=== PATIENT | female | born 1965 | race Caucasian/White ===

== ENCOUNTER 2024-06-05 07:13 | Emergency (ER) | payer BC, MEDICARE, SELFPAY ==
[2024-06-05 07:15] VITALS: BP 103/73
--- NOTE | 2024-06-05 07:46 | ED.GENMED ---
History of Present Illness
General
Chief Complaint: Abdominal Symptoms
Source: patient
Time Seen by Provider: 06/05/24 07:26
History of Present Illness
History of Present Illness:
This patient is a 59-year-old female with an extensive prior medical history presents emergency department with complaints of right lower back pain that she has had for the last few days associated with nausea and 'dark' urine. The pain initially
was intermittent but now is constant. It is not related to certain positions, and there are no exacerbating relieving factors. She thought at first that it might be related to a back drain as patient works in the [employer] and
does a lot of lifting. Patient notes that she does get periodic iron infusions and that she has been recently feeling tired but having difficulty sleeping. She denies dysuria, urgency, frequency, hematuria. She has her typical loose stools which
appear yellowish in color without blood. She denies fever, chest pain, shortness of breath, vomiting, abdominal pain. The symptoms are inconsistent with prior episodes of bowel obstruction. Patient saw her primary care doctor and was told that
her urine looked dark but otherwise inconclusive.
Past History
Past History
ED Past Medical History: CVA (stroke 2003 presumed to be due to patent foramen ovale), Fibromyalgia (systemic scleroderma, Raynaud's, Sjogren's disease), GERD, Psychiatric (Anxiety, depression) and Other (Irritable bowel syndrome, scleroderma,
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
ED Past Surgical History: Appendectomy, Bowel resection (Ileostomy), Cardiac (foramen ovale closure 2004), Cholecystectomy, Orthopedic (bilateral carpal tunnel releases), Tonsilectomy, Urological (Bladder sent) and Other (Gastric bypass, bowel
resection, SBOs, Hernia, Eye surgery, )
Social History
Tobacco: Non-smoker
Alcohol: None
Drug: None
Personal:
Living: with family
Employment: Employed
Family History
Family History: Other (reviewed and noncontributory)
Phy Exam
Physical Exam
Physical Exam:
GENERAL: Alert , in no apparent distress
EYE: pupils equal and reactive
NECK: Supple, no significant adenopathy.
ENT: o/p clr, mmm.
CARDIAC: Regular rate and rhythm .
LUNGS: Clear breath sounds bilaterally, no acute respiratory distress, no wheezes/rales/rhonchi
ABDOMEN: Soft, without focal tenderness, no r/g, no cvat
NEUROLOGICAL: Alert and oriented, no focal neuro deficits
SKIN: Warm and dry, skin intact.
MUSCULOSKELETAL: No edema, well perfused.
PSYCH: Normal and appropriate interaction.
back: no skin changes noted at area of pain (R lower flank), moves about bed easily, no ttp
Course
Orders/Labs/Results
Orders:
Orders
06/05/24 07:49
HYDROmorphone [Dilaudid] 0.5 mg IV NOW STA
Ondansetron Injectable [Zofran] 4 mg IV NOW STA
06/05/24 07:50
CT Abd/pel Without Iv Or Oral Urgent
Comment:
Reason For Exam: R flank pain
06/05/24 08:11
Complete Blood Count/No Diff Urgent
Comprehensive Metabolic Panel Urgent
Lipase Urgent
Urinalysis Reflex To Culture Urgent
Date Specimen was Collected: 06/05/24
Time Specimen was Collected: 07:55
Urine Microscopic Reflex Cult Urgent
Urine Culture Urgent
RASHID Source: U
Specimen Description:
Date Specimen was Collected: 06/05/24
Time Specimen was Collected: 07:55
Abnormal Lab Results
06/05/24
08:11
MCHC 32.7 L g/dL
(33.0-37.0)
Sodium 134 L mmol/L
(135-145)
Total Protein 6.2 L g/dl
(6.3-8.2)
Urine Bilirubin 1+ A
(Negative)
Leukocyte Esterase Rfl 1+ A
(Negative)
Urine Bacteria (Reflex) Few A
(Negative)
Urine Albumin (Reflex) 2+ A
(Neg - Trace)
06/05/24 08:11
06/05/24 08:11
Vital Signs
Initial and Last Documented VS:
Initial Vital Signs
Temp Pulse Resp BP Pulse Ox
98.8 F 66 18 103/73 97
06/05/24 07:15 06/05/24 07:15 06/05/24 07:15 06/05/24 07:15 06/05/24 07:15
Last Documented Vital Signs
Temp Pulse Resp BP Pulse Ox
98.8 F 66 18 103/73 97
06/05/24 07:15 06/05/24 07:15 06/05/24 07:15 06/05/24 07:15 06/05/24 07:15
*Critical Care Note
Total Time (30-74mins, 75-104mins- exclusive of procedures): Not Applicable
Update Note
Update Note:
Patient presents to the Emergency Department with back pain and nausea___
Number and Complexity of Problems Addressed at the Encounter
� Chronic conditions affecting care:
� Acute Exacerbation and/or Progression of Chronic Illness:
� Differential Diagnosis includes: But not limited to kidney stone, pyelonephritis, musculoskeletal strain, etc. etc.
Amount and/or Complexity of Data to be Reviewed and Analyzed
� I performed an independent evaluation of and my interpretation is:
EKG:
CT:read by rads There is no hydronephrosis or evidence of renal calculus.
Postoperative changes of subtotal colectomy with mild/moderate rectal stool burden.
Prior cholecystectomy.
Xrays:
Laboratory Studies: Generally unremarkable
Other:
� Review of other/old records reveals: Prior hospitalization reviewed including discharge from September 2022 and ER visit January 2023.
� Clinical information was obtained by an independent historian:
� Prescriptions/Medications Considered but not given:
� Further testing considered but not performed:
Risk of Complications and/or Morbidity or Mortality of Patient Management
� Social determinants of health affecting care:
� Discussion with other providers (PCP, Hospitalists, Consultants, etc):
� Escalation of care including admission/observation vs risk of discharge considered: Workup generally unremarkable here, no emergent etiology noted for her symptoms. I have very low clinical suspicion for a vascular origin of
her pain such as dissection, occlusion. UA unremarkable and not suggestive of infection. Will recommend patient follow-up closely with her primary care doctor, discussed with her reasons to return the emergency department. pt GIVEN COPY OF CT.
ED Attending Note
-
Portions of this chart may have been created with voice recognition software.� Occasional wrong word or��sound alike� substitutions may have occurred due to the inherent limitations of voice recognition software.
Discharge Plan
Departure
Patient Disposition: Home (Routine Discharge)
Date of Disposition: 06/05/24
Time of Disposition: 09:32
Patient with high blood pressure during this ER visit?: No
Condition: Good
Discharge Problem:
Back pain
Instructions: Back Pain
Prescriptions:
No Action
hydroxychloroquine [Plaquenil] 200 MG tablet
200 mg PO BID
trazodone 100 MG tablet
200 mg PO HS
gabapentin 300 MG capsule
300 mg PO BID
zonisamide 50 MG capsule
100 mg PO BID@0800,1700
levothyroxine [Synthroid] 50 MCG tablet
50 mcg PO DAILY AT 0700
duloxetine [Cymbalta] 60 mg Capsule,Delayed Release(Dr/Ec)
90 mg PO DAILY
cyanocobalamin (vitamin B-12) 1,000 MCG tablet
5,000 mcg PO DAILY
cholecalciferol (vitamin D3) 1,000 UNITS tablet
3,000 units PO DAILY
olanzapine 2.5 mg Tablet
5 mg PO HS
zonisamide 50 mg Capsule
50 mg PO HS
omeprazole 40 mg Capsule,Delayed Release(Dr/Ec)
40 mg PO BID
multivitamin Tablet
1 tab PO DAILY
lorazepam [Ativan] 1 mg Tablet
1 mg PO QID
oxycodone 5 mg Tablet
20 mg PO Q6H PRN (Reason: Pain)
buprenorphine [Butrans] 20 mcg/hour Patch Weekly
1 patch TRANSDERMAL QWEEK
loperamide [Imodium] 2 mg Capsule
2 mg PO Q6H
diphenoxylate-atropine [Lomotil] 2.5-0.025 mg Tablet
1 tab PO Q6H
psyllium husk [Metamucil] 0.52 gram Capsule
0.52 g PO QID
Referrals:
Venkat Valdez MD [Family Provider] - Follow up in 2-3 days
Activity Restrictions/Additional Instructions:
IF YOU DEVELOP INCREASING/NEW PAIN, FEVER, VOMITING, ABDOMINAL PAIN, NUMBNESS, WEAKNESS, INCONTINENCE, GET WORSE, OR OTHER WORRISOME SIGNS, GO TO THE ER IMMEDIATELY!
Interventions
Interventions:
*Risk Screen - Suicide Last Done: 06/05/24 07:15
*General Assessment Last Done: 06/05/24 07:15
*Neglect/Abuse Screening Last Done: 06/05/24 07:15
*ED COVID-19 Vaccine History Last Done: 06/05/24 08:32
KN-Qvzdnu-Rwgjsuhycv Assessment Last Done: 06/05/24 08:32
Discharge Date and Time
Print Language: PASHTO
[2024-06-05] MEDS: ZOFRAN 4 MG IV (08:21)
[2024-06-05] MEDS: DILAUDID 0.5 MG IV (08:22)
[2024-06-05 08:23] LABS: Hematocrit 41.9 % (37.0-47.0); Hemoglobin 13.7 g/dL (12.0-16.0); Mean Corp Hgb Conc. 32.7 g/dL (33.0-37.0); Mean Corpuscular Volume 91.9 fL (81.0-99.0); Mean Platelet Volume 10.1 fL (7.4-10.4); Platelet Count 250 10^3/uL (130-400); Red Blood Cell Count 4.56 10^6/uL (4.20-5.40); Red Cell Dist. Width 13.8 % (11.5-14.5); White Blood Cell Count 6.2 10^3/uL (4.8-10.8)
[2024-06-05 08:28] LABS: Urine Albumin 2+ (Neg - Trace); Urine Bilirubin 1+ (Negative); Urine Character Clear (Clear); Urine Color Yellow; Urine Glucose Negative (Negative); Urine Ketone Negative (Negative); Urine Leukocyte 1+ (Negative); Urine Nitrite Negative (Negative); Urine Occult Blood Negative (Negative); Urine Specific Gravity 1.015 (<1.030); Urine Urobilinogen 1+ (Neg - 1+)
[2024-06-05 08:35] LABS: ALT (SGPT) 13 U/L (0-35); AST (SGOT) 21 U/L (14-36); Albumin 3.7 g/dl (3.5-5.0); Alkaline Phosphatase 63 U/L (38-126); Blood Urea Nitrogen 10 mg/dl (7-17); Calcium 9.2 mg/dl (8.4-10.2); Carbon Dioxide 25 mmol/L (22-30); Chloride 105 mmol/L (98-107); Glucose 76 mg/dl (70-99); Lipase 170 U/L (23-300); Potassium 4.8 mmol/L (3.5-5.1); Sodium 134 mmol/L (135-145); Total Bilirubin 0.8 mg/dl (0.2-1.3); Total Protein 6.2 g/dl (6.3-8.2); eGFR > 60.00
[2024-06-05 09:21] LABS: Urine Bacteria Few (Negative); Urine Red Blood Cell 0-2 /HPF (0-2); Urine Squamous Cell 16-20 /LPF (Few)
[2024-06-05 10:25] VITALS: BP 136/78
--- NOTE | 2024-06-06 10:22 | ED.ADDNOTE ---
ED Addendum
ED Addendum
ED Addendum Note:
LATE ENTRY FOR 01/31/[address] scan results and my note are entered erroneously. The correct results are as follows:
Order #:[id number]
Exams: CT Abd/pel W Iv And Oral Contr
PROCEDURES: CT Abd/pel W Iv And Oral Contr
CLINICAL INDICATION: abd pain
TECHNIQUE: Axial images were obtained through the abdomen and pelvis following oral contrast and intravenous nonionic contrast with coronal and sagittal reformations. Automated dose reduction technique was utilized for this exam.
COMPARISON: October 27, 2022; September 30, 2022
FINDINGS:
Lower Chest: Lung bases predominantly clear. Small hiatal hernia. No pleural effusion.
Abdomen:
Liver: No focal intrinsic abnormality.
Bile Ducts: Within normal limits.
Gallbladder: Prior cholecystectomy.
Pancreas: Within normal limits.
Spleen: Within normal limits.
Adrenals: Within normal limits.
Kidneys/Ureters: No focal intrinsic abnormality.
Bowel: Prior subtotal colectomy with distal sigmoid/rectal anastomosis and apparent reversal of colostomy in the interval since prior study. Mild nonspecific small bowel dilatation. Right sided spiculation in hernia containing nondilated loop of
small bowel without accompanying inflammatory changes. Some mild rectal wall thickening is suspected.
Peritoneum: No ascites or free air.
Bladder: Unopacified without gross focal intrinsic abnormality.
Vessels: Abdominal aorta within the limits of normal in caliber.
Retroperitoneum: No retroperitoneal lymphadenopathy.
Bones: No suspicious lesions. Apparent neurostimulator generator are again seen overlying the right gluteal region.
IMPRESSION:
Apparent prior subtotal colectomy with distal sigmoid/rectal anastomosis, nonspecific mild small bowel dilatation.
Right-sided spiculated hernia containing nondilated bowel without accompanying inflammatory changes.
Mild rectal wall thickening which could represent mild proctitis.
Findings again seen: Small hiatal hernia and prior cholecystectomy.
Study preliminarily interpreted by Dr. Gilmore from [facility], report faxed to the emergency department at [id number] hours on January 31, 2023.
Electronically signed by Sanchez Lantigua MD 01/31/2023 7:07 AM
[facility] Dose Report: Up-to-date CT equipment and radiation dose reduction techniques were employed. CTDIvol: 6.8 mGy. DLP: 361 mGy-cm.
Dictated By: Sanchez Lantigua MD
Dictated Date & Time: 01/31/23 0700
Signed/Co-Signer By: Sanchez Lantigua MD /
Signed/Co-Signer Date & Time: 01/31/23 0707 /
Transcribed by: Sanchez Lantigua
All references to a renal mass are erroneous
== END 2024-06-05 10:00 | disposition home or self-care (01) ==
LOC: EMR 07:13
PROVIDERS: EMERGENCY PHYSICIAN Emergency Medicine; FAMILY PHYSICIAN Internal Medicine
DX: M54.50 Low back pain, unspecified (principal); M79.7 Fibromyalgia; M34.9 Systemic sclerosis, unspecified; I73.00 Raynaud's syndrome without gangrene; M35.00 Sjogren syndrome, unspecified; K21.9 Gastro-esophageal reflux disease without esophagitis; K58.0 Irritable bowel syndrome with diarrhea; Z86.73 Personal history of transient ischemic attack (TIA), and cerebral infarction without residual deficits; Z90.49 Acquired absence of other specified parts of digestive tract; Z98.84 Bariatric surgery status
CPT/HCPCS: 99284; 96374; 96375; 74176; 80053; 81003; 81015; 83690; 85027; 87077; 87086; 87186

== ENCOUNTER 2024-06-22 20:13 | Inpatient (IN) | payer MEDICARE, BC, SELFPAY ==
[2024-06-22 13:47] VITALS: BP 110/75
[2024-06-22] MEDS: ZOFRAN ODT (ORALLY DISINTEGRATING) 4 MG PO (13:56)
--- NOTE | 2024-06-22 14:08 | ED TECH ---
pt typically an ultrasound stick
--- NOTE | 2024-06-22 16:16 | ED.GENMED ---
History of Present Illness
General
Chief Complaint: Abdominal Pain
Source: patient
Exam Limitations: none
Time Seen by Provider: 06/22/24 16:02
Nursing documentation reviewed up to this point in time: agreed with
History of Present Illness
History of Present Illness:
Patient to ED with complaint of diffuse abdominal pain, n/v. Symptoms started this AM. Denies fever/chills, diarrhea. Took zofran at home without relief. States she vomited blood. Brought self to ED for eval.
Past History
Past History
ED Past Medical History: CVA (stroke 2003 presumed to be due to patent foramen ovale), Fibromyalgia (systemic scleroderma, Raynaud's, Sjogren's disease), GERD, Psychiatric (Anxiety, depression) and Other (Irritable bowel syndrome, scleroderma,
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
ED Past Surgical History: Appendectomy, Bowel resection (Ileostomy), Cardiac (foramen ovale closure 2004), Cholecystectomy, Orthopedic (bilateral carpal tunnel releases), Tonsilectomy, Urological (Bladder sent) and Other (Gastric bypass, bowel
resection, SBOs, Hernia, Eye surgery, )
Social History
Tobacco: Non-smoker
Alcohol: None
Drug: None
Personal:
Living: with family
Employment: Employed
Family History
Family History: Other (reviewed and noncontributory)
Review of Systems
Review of Systems
Allergies reviewed?: Yes
All Other Systems: ROS reviewed and negative except as documented in HPI and ROS
Constitutional: Reports no symptoms
EENT: Reports no symptoms
Respiratory: Reports no symptoms
Cardiac: Reports no symptoms
ABD/GI: Reports abdominal pain (diffuse), nausea and vomiting (reports episode of vomiting blood at home)
: Reports no symptoms
Musculoskeletal: Reports no symptoms
Skin: Reports no symptoms
Neurological: Reports no symptoms
Psychiatric: Reports no symptoms
Phy Exam
General Physical Exam
General Presentation: mild distress
General age: appears stated age
General Skin: warm and dry
General Habitus: normal
General Mental: alert
Cardiovascular Exam
Cardiovascular Exam: regular rate/rhythm
Pulmonary Exam
Pulmonary Exam: no respiratory distress and chest non tender
Gastrointestinal Exam
Gastrointestinal Exam: normal bowel sounds, soft, no organomegaly, no pulsatile mass, non distended and no cva tenderness
Palpation: generalized: Moderate tenderness
Musculoskeletal Exam
Musculoskeletal Exam: full ROM and neuro vasc intact
Skin Exam
Skin Exam: normal color, warm/dry and no rash
Psychiatric Exam
Psychiatric Exam: normal mood/affect
Course
Orders/Labs/Results
Orders:
Orders
06/22/24 13:55
Ondansetron Orally Disint [Zofran Odt (Orally Disintegrating)] 4 mg .ROUTE .ST-MED ONE
Ondansetron Orally Disint [Zofran Odt (Orally Disintegrating)] 4 mg PO NOW STA
Obstruct Series W/PA Chest [CR Obstruct Series W/pa Chest] Urgent
Comment:
Reason For Exam: pain, vomiting
06/22/24 16:13
0.9% Sodium Chloride 1000 ml [Nss] 1,000 ml IV BOLUS
06/22/24 16:14
HYDROmorphone [Dilaudid] 0.5 mg IV NOW STA
Ondansetron Injectable [Zofran] 4 mg IV NOW STA
06/22/24 16:15
CT Abd/pelvis W Iv Cont Urgent
Comment:
Reason For Exam: diffuse pain, vomiting.
06/22/24 16:16
Urinalysis Reflex To Culture Urgent
Date Specimen was Collected: 06/22/24
Time Specimen was Collected: 16:34
06/22/24 17:41
ABO2 Urgent
K Wristband Number:
Associate notified that ABO2 has been ordered: [id number]
Date: 06/22/24
Time: 18:36
Kiln Charger ID: [id number]
Complete Blood Count/With Diff Urgent
Comprehensive Metabolic Panel Urgent
Lipase Urgent
06/22/24 19:21
HYDROmorphone [Dilaudid] 0.5 mg IV NOW STA
Ondansetron Injectable [Zofran] 4 mg IV NOW STA
Abnormal Lab Results
06/22/24
17:41
MCHC 32.3 L g/dL
(33.0-37.0)
Carbon Dioxide 31 H mmol/L
(22-30)
Total Protein 5.9 L g/dl
(6.3-8.2)
06/22/24 17:41
06/22/24 17:41
Vital Signs
Initial and Last Documented VS:
Initial Vital Signs
Temp Pulse Resp BP Pulse Ox
98.5 F 80 20 110/75 93
06/22/24 13:47 06/22/24 13:47 06/22/24 13:47 06/22/24 13:47 06/22/24 13:47
Last Documented Vital Signs
Temp Pulse Resp BP Pulse Ox
98.5 F 82 14 112/69 98
06/22/24 13:47 06/22/24 19:15 06/22/24 19:15 06/22/24 18:00 06/22/24 19:15
*Radiology
Radiology exam reviewed: radiology read reviewed
*Pulse Oximetry
Patient hypoxic: no
*Critical Care Note
Total Time (30-74mins, 75-104mins- exclusive of procedures): Not Applicable
Update Note
Update Note:
Patient to ED with complaint of diffuse abd. pain. CT result reviewed - suspeceted partial SBO. No further vomiting in ED, COntinues to complain of pain. WIll admit to hospitalist service. Case discussed with Dr. Leonard who agrees with
findings and plan
ED Attending Note
-
Portions of this chart may have been created with voice recognition software.� Occasional wrong word or��sound alike� substitutions may have occurred due to the inherent limitations of voice recognition software.
Discharge Plan
Departure
Patient Disposition: Admit
Date of Disposition: 06/22/24
Time of Disposition: 19:21
Presentation/result/management discussed w/ accepting MD/DO: Hospitalist
Condition: Fair
Covid-19: Not Applicable
Discharge Problem:
Partial small bowel obstruction
Prescriptions:
No Action
hydroxychloroquine [Plaquenil] 200 MG tablet
200 mg PO BID
trazodone 100 MG tablet
200 mg PO HS
gabapentin 300 MG capsule
300 mg PO BID
zonisamide 50 MG capsule
100 mg PO BID@0800,1700
levothyroxine [Synthroid] 50 MCG tablet
50 mcg PO DAILY AT 0700
duloxetine [Cymbalta] 60 mg Capsule,Delayed Release(Dr/Ec)
90 mg PO DAILY
cyanocobalamin (vitamin B-12) 1,000 MCG tablet
5,000 mcg PO DAILY
cholecalciferol (vitamin D3) 1,000 UNITS tablet
3,000 units PO DAILY
olanzapine 2.5 mg Tablet
5 mg PO HS
zonisamide 50 mg Capsule
50 mg PO HS
omeprazole 40 mg Capsule,Delayed Release(Dr/Ec)
40 mg PO BID
multivitamin Tablet
1 tab PO DAILY
lorazepam [Ativan] 1 mg Tablet
1 mg PO QID
oxycodone 5 mg Tablet
20 mg PO Q6H PRN (Reason: Pain)
buprenorphine [Butrans] 20 mcg/hour Patch Weekly
1 patch TRANSDERMAL QWEEK
loperamide [Imodium] 2 mg Capsule
2 mg PO Q6H
diphenoxylate-atropine [Lomotil] 2.5-0.025 mg Tablet
1 tab PO Q6H
psyllium husk [Metamucil] 0.52 gram Capsule
0.52 g PO QID
nitrofurantoin monohyd/m-cryst [Macrobid] 100 mg capsule
100 mg PO BID Qty: 14 0RF
Referrals:
Venkat Valdez MD [Family Provider] -
Interventions
Interventions:
*Risk Screen - Suicide Last Done: 06/22/24 13:47
*General Assessment Last Done: 06/22/24 17:48
*Neglect/Abuse Screening Last Done: 06/22/24 17:48
*ED- Fall Risk Assessment Last Done: 06/22/24 17:48
*ED COVID-19 Vaccine History Last Done: 06/22/24 17:48
YG-Qwtdsp-Cbwgbephcz Assessment Last Done: 06/22/24 17:40
Discharge Date and Time
Print Language: PANAMANIAN
[2024-06-22 17:12] VITALS: BP 109/72
[2024-06-22] MEDS: NSS 1000 IV (17:37)
[2024-06-22] MEDS: DILAUDID 0.5 MG IV ×2 (17:37→20:46)
[2024-06-22] MEDS: ZOFRAN 4 MG IV ×2 (17:38→20:45)
[2024-06-22 17:46] VITALS: BMI 23.9
[2024-06-22 18:00] VITALS: BP 112/69
[2024-06-22 18:06] LABS: % Basophils 0.6 % (0-2); % Eosinophils 1.2 % (0-6); % Immature Granulocytes 0.1 % (0-0.5); % Lymphocytes 22.7 % (20.5-51.1); % Monocytes 7.8 % (1.7-9.3); % Neutrophils 67.6 % (42.2-75.2); Absolute Eosinophils 0.1 10^3/uL (0-0.7); Absolute Lymphocytes 1.5 10^3/uL (1.2-3.4); Absolute Monocytes 0.5 10^3/uL (0.1-0.6); Absolute Neutrophils 4.6 10^3/uL (1.4-6.5); Hematocrit 41.8 % (37.0-47.0); Hemoglobin 13.5 g/dL (12.0-16.0); Mean Corp Hgb Conc. 32.3 g/dL (33.0-37.0); Mean Corpuscular Hgb 29.8 pg (27.0-31.0); Mean Corpuscular Volume 92.3 fL (81.0-99.0); Mean Platelet Volume 9.7 fL (7.4-10.4); Nucleated Red Blood Cells % 0 %; Platelet Count 264 10^3/uL (130-400); Red Blood Cell Count 4.53 10^6/uL (4.20-5.40); Red Cell Dist. Width 14.3 % (11.5-14.5); White Blood Cell Count 6.8 10^3/uL (4.8-10.8)
[2024-06-22 18:20] LABS: ALT (SGPT) 15 U/L (0-35); AST (SGOT) 21 U/L (14-36); Albumin 3.5 g/dl (3.5-5.0); Alkaline Phosphatase 73 U/L (38-126); Blood Urea Nitrogen 13 mg/dl (7-17); Calcium 8.7 mg/dl (8.4-10.2); Carbon Dioxide 31 mmol/L (22-30); Chloride 105 mmol/L (98-107); Estimated Creatinine Clearance 73 ml/min; Glucose 84 mg/dl (70-99); Lipase 102 U/L (23-300); Potassium 4.5 mmol/L (3.5-5.1); Sodium 137 mmol/L (135-145); Total Bilirubin 0.6 mg/dl (0.2-1.3); Total Protein 5.9 g/dl (6.3-8.2); eGFR > 60.00
--- NOTE | 2024-06-22 20:06 | HPS.HSE ---
Family Physician
-
Family Physician: Venkat Valdez
Chief Complaint
-
Abd Pain
History of Present Illness
Patient is a 59y F with PMH significant for scleroderma / Sjogren's and multiple prior bowel surgeries who presents to ED complaining of abdominal pain. Patient states that she woke this AM with pain in the L abdomen and this has persisted
throughout the day. She reports emesis x 3 episodes total - twice with lexx blood in the emesis. She had a BM this AM which she describes as watery diarrhea. Last normal BM was yesterday AM.
Patient states that her pain in the ED is 10.
Patient has had multiple previous episodes of ileus, SBO, etc and multiple prior surgeries, bowel resections, etc.
She has prior history of total colectomy with J-pouch / ileostomy. Ileostomy has been reversed since her last visit here (09/2022).
She has been followed by Dr. Dl Jackman at [place] for previous GI / surgical issues.
Medical History
Past Medical History
Past Medical History: Reports Other
Additional Past Medical History:
Systemic Scleroderma
Sjogren's Syndrome
Raynaud's
Psychogenic Nonepileptic Seizures
Hx Stroke secondary to patent foramen ovale which has been subsequently closed
Hypothyroidism
Anxiety/Depression
GERD/Anastomotic Ulcer
Past Surgical History: Reports Other
Additional Past Surgical History:
Gastric Bypass
Multiple Small Bowel Resections
Subtotal Colectomy / J-Pouch
Ileostomy 2021 right side abdomen, revision with left side abdomen ileostomy February 2022
Cholecystectomy
Appendectomy
PFO Device Closure
Tonsillectomy
Social History
Tobacco: Non-smoker
Alcohol: None
Drug: None
Personal:
Living: With Family (Daughter and )
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
Family History
Family History: Not pertinent
Allergies / Home Medications
Allergies reflects when Allergies were last updated in [employer].
Home Medications with original date entered in [employer]
Allergy/Medication List:
Allergies
Allergy/AdvReac Type Severity Reaction Status Date / Time
Cephalosporins Allergy rash, Verified 06/22/24 13:48
swelling
fentanyl Allergy PATCH-RASH/ Verified 06/22/24 13:48
SWELLING
ketamine Allergy rash,swelli Verified 06/22/24 13:48
ng
ketorolac [From Toradol] Allergy rash,swelli Verified 06/22/24 13:48
ng
levofloxacin [From Levaquin] Allergy rash,swelli Verified 06/22/24 13:48
ng
micafungin Allergy RASH/SWELLI Verified 06/22/24 13:48
NG
morphine Allergy rash,swelli Verified 06/22/24 13:48
ng
NSAIDS (Non-Steroidal Allergy rash,swelli Verified 06/22/24 13:48
Anti-Inflamma ng
Penicillins Allergy rash,swell Verified 06/22/24 13:48
prochlorperazine Allergy Rash Verified 06/22/24 13:48
tramadol Allergy rash,swelli Verified 06/22/24 13:48
ng
acetaminophen [From Tylenol] AdvReac upset Verified 06/22/24 13:48
stomach
Home Medications
cholecalciferol (vitamin D3) 25 mcg (1,000 unit) tablet 1,000 units PO DAILY Supplement 09/13/21
cyanocobalamin (vitamin B-12) 1,000 mcg tablet 1,000 mcg PO DAILY Supplement 09/13/21
duloxetine 60 mg capsule,delayed release (Cymbalta) 120 mg PO DAILY mental health 09/13/21
gabapentin 300 mg capsule 600 mg PO HS Neurological Condition 09/13/21
trazodone 100 mg tablet 200 mg PO HS Sleep 09/13/21
buspirone 30 mg tablet 30 mg PO BID 06/22/24
olanzapine 5 mg tablet 5 mg PO HS 06/22/24
ondansetron HCl 4 mg tablet 4 mg PO Q8HPRN PRN nausea 06/22/24
pantoprazole 40 mg tablet,delayed release 40 mg PO BID 06/22/24
rimegepant 75 mg disintegrating tablet (Nurtec ODT) 75 mg PO Q48H 06/22/24
suvorexant 15 mg tablet (Belsomra) 15 mg PO HS 06/22/24
Patient states that she is no longer on Suboxone - though it appears on her PDMP filled earlier this month.
Review of Systems
-
History Source: Patient
A 12 point ROS was completed and negative except as noted: Yes
Constitutional: Denies Fever or Chills
Respiratory: Denies Cough or Trouble Breathing
Cardiac: Denies Chest Pain or Palpitations
Abdomen/GI: Reports Abdominal Pain, Nausea, Vomiting and Diarrhea; Denies Anorexia
: Denies Dysuria, Frequency or Flank Pain
Musculoskeletal: Denies Joint Pain or Edema
Neurological: Denies Dizzy or Headache
Psych: Denies Depression or Anxiety
Physical Exam
Vital Signs
Vital Signs
Temp Pulse Resp BP Pulse Ox
98.5 F 82 14 112/69 98
06/22/24 13:47 06/22/24 19:15 06/22/24 19:15 06/22/24 18:00 06/22/24 19:15
Physical Exam
General: Other (59y F in mild distress due to pain.)
HEENT: Moist mucous membranes and PERRLA
Respiratory: Clear; No Wheezes, Rales or Rhonchi
Cardiac: S1/S2 and Regular Rhythm; No Murmur
GI: Soft and Other (Normal bowel sounds. Pos tenderness - mostly in the lower abdomen. Scarring from prior surgeries evident.)
Musculoskeletal: No Clubbing, No Cyanosis and No Edema
Neuro: AO x 3
Laboratory Results
-
06/22/24 17:41
06/22/24 17:41
Laboratory Results
Total Bilirubin 0.6 mg/dl (0.2-1.3) 06/22/24 17:41
AST 21 U/L (14-36) 06/22/24 17:41
ALT 15 U/L (0-35) 06/22/24 17:41
Alkaline Phosphatase 73 U/L (38-126) 06/22/24 17:41
Lipase 102 U/L (23-300) 06/22/24 17:41
Impression/Plan
-
A/P: Patient is a 59y F with PMH significant for Sjogren's / systemic sclerosis and multiple prior bowel issues / surgeries who presents to ED complaining of abdominal pain.
SBO
- Admit for further evaluation and treatment.
- CT scan shows SBO with possible transition point in the LUQ area.
- Patient had loose BM earlier this AM.
- Supportive care, pain control, antiemetics.
- Low threshold for NG decompression if pain cannot be controlled or patient has recurrent emesis.
- Surgery evaluation for additional recommendations.
Systemic Scleroderma
Sjogren's Syndrome
- No longer appears to be on any disease modifying therapies.
- Previously on Plaquenil.
Chronic Pain Syndrome
Chronic Opioid Use Disorder
- Patient with recent Rx for Suboxone per PDMP - though she states that she has not taken this in over a month.
- Prior records reviewed. Myriad allergies including most non-narcotic pain medications - in fact, everything except for Dilaudid.
- Check UDS.
- Try to minimize opioid pain medication - though significantly limited by stated allergies.
- Follow-up with Pain Management / Addiction Medicine as an outpatient.
Anxiety / Depression
- Hold all PO medications acutely.
- Resume usual regimen once SBO improved and able to take PO.
DVT Prophylaxis: Lovenox
Code Status: Full
[2024-06-22 21:00] VITALS: BP 120/82
--- NOTE | 2024-06-22 21:41 | VATNOTE ---
Called to replace infiltrated IV site. Attempted to place IV x2 unsuccessfully. Each time vein was accessed without difficulty but unable to advance IV catheter in spite of multiple advancement techniques. Midline catheter then attempted x2
unsuccessfully. Each time vein was accessed in right basilic and brachial vein. Unable to advance guidewire in right basilic vein in spite of multiple repositioning techniques. Right brachial vein then accessed. Guidewire was able to be advanced
after repositioning several times but then unable to advance midline catheter. 24 gauge 3/4' protective catheter placed in left dorsal vein arch. Primary care RN made aware of extremely limited access. Recommended central line if current IV site
fails.
[2024-06-22] MEDS: LR 1000 IV (22:08)
[2024-06-22 22:18] VITALS: BP 115/84
[2024-06-23] MEDS: DILAUDID 0.5 MG IV ×8 (00:05→21:22)
[2024-06-23] MEDS: BENADRYL 6.25 MG IV ×3 (01:21→22:30)
[2024-06-23] MEDS: ZOFRAN 4 MG IV ×2 (04:42→15:32)
[2024-06-23 05:19] LABS: Urine Albumin 2+ (Neg - Trace); Urine Bilirubin Negative (Negative); Urine Character Clear (Clear); Urine Color Yellow; Urine Glucose Negative (Negative); Urine Ketone 2+ (Negative); Urine Leukocyte 1+ (Negative); Urine Nitrite Negative (Negative); Urine Occult Blood Negative (Negative); Urine Specific Gravity 1.015 (<1.030); Urine Urobilinogen 2+ (Neg - 1+)
[2024-06-23 05:21] LABS: Hematocrit 40.4 % (37.0-47.0); Hemoglobin 13.2 g/dL (12.0-16.0); Mean Corp Hgb Conc. 32.7 g/dL (33.0-37.0); Mean Corpuscular Hgb 30.1 pg (27.0-31.0); Mean Platelet Volume 9.8 fL (7.4-10.4); Platelet Count 222 10^3/uL (130-400); Red Blood Cell Count 4.39 10^6/uL (4.20-5.40); Red Cell Dist. Width 14.2 % (11.5-14.5)
[2024-06-23 05:48] LABS: Urine Bacteria Moderate (Negative); Urine Squamous Cell >30 /LPF (Few)
[2024-06-23 07:03] LABS: Blood Urea Nitrogen 10 mg/dl (7-17); Calcium 8.4 mg/dl (8.4-10.2); Carbon Dioxide 29 mmol/L (22-30); Chloride 107 mmol/L (98-107); Estimated Creatinine Clearance 73 ml/min; Glucose 92 mg/dl (70-99); Potassium 4.1 mmol/L (3.5-5.1); Sodium 138 mmol/L (135-145); eGFR > 60.00
[2024-06-23 07:25] VITALS: BP 113/75
[2024-06-23] MEDS: LR 1000 IV ×2 (08:13→18:29)
[2024-06-23] MEDS: PROTONIX IV 40 MG IV (08:14)
--- NOTE | 2024-06-23 09:11 | PTCARENOTE ---
Both PIVs blown. IV team consulted, failed midlines yesterday, suggesting Central line placement. Dr Almaraz notified, [facility] consulted, sent to [facility] at this time.
--- NOTE | 2024-06-23 11:57 | W.PN.HOSP.TC ---
Today's Communication/Plan
-
may require SBFT
GS eval
IVF
NGT if with severe nausea/vomiting
Assessment / Plan
Assessment / Plan
General: watching tv,
HEENT: Moist mucous membranes and PERRLA, RIJ Central line noted
Respiratory: Clear; No Wheezes, Rales or Rhonchi
Cardiac: S1/S2 and Regular Rhythm; No Murmur
GI: Soft and Other (Normal bowel sounds. Pos tenderness - mostly in the R SIDE of upper/lower abdomen. Scarring from prior surgeries evident.)
Musculoskeletal: No Clubbing, No Cyanosis and No Edema
Neuro: AO x 3
A/P: Patient is a 59y F with PMH significant for Sjogren's / systemic sclerosis and multiple prior bowel issues / surgeries who presents to ED complaining of abdominal pain.
#SBO
#History multiple small bowel obstructions with resection
#History ileostomy 12/18/2021 side abdomen, revision to left side abdomen February 2022 s/p reversal
- CT scan shows SBO with possible transition point in the LUQ area.
- Patient had loose BM on day of admission
- Supportive care, pain control, antiemetics, IVF
- Low threshold for NG decompression if pain cannot be controlled or patient has recurrent emesis.
- Surgery evaluation for additional recommendations.
Systemic Scleroderma
Sjogren's Syndrome
- No longer appears to be on any disease modifying therapies.
- Previously on Plaquenil.
Chronic Pain Syndrome
Chronic Opioid Use Disorder
- Patient with recent Rx for Suboxone per PDMP - though she states that she has not taken this in over a month.
- Prior records reviewed. Myriad allergies including most non-narcotic pain medications - in fact, everything except for Dilaudid.
- Check UDS.
- Try to minimize opioid pain medication - though significantly limited by stated allergies.
- Follow-up with Pain Management / Addiction Medicine as an outpatient.
Anxiety / Depression
- Hold all PO medications acutely.
- Resume usual regimen once SBO improved and able to take PO.
DVT Prophylaxis: Lovenox
Code Status: Full
Anticipated Discharge: > 48 hours
Subjective/Interval History
-
Date of Service: June 23, 2024
no nausea or vomiting today
had multiple episode yesterday
had seafood on friday
states of abd pain
passing some flatulence
Objective Data
-
Labs:
Laboratory Results
06/23/24
04:55
WBC 7.0
Hgb 13.2
Hct 40.4
Plt Count 222
Sodium 138
Potassium 4.1
Chloride 107
Carbon Dioxide 29
BUN 10
Creatinine 0.7
Glucose 92
Calcium 8.4
Vital Signs:
Vital Signs
Temp Pulse Resp BP Pulse Ox
98.8 F 74 13 113/75 97
06/23/24 07:25 06/23/24 07:25 06/23/24 07:25 06/23/24 07:25 06/23/24 07:25
Data Reviewed
-
Total Time Spent with Patient (in minutes): 55
--- NOTE | 2024-06-23 12:48 | CON.GS ---
Consultation
-
Requesting Provider: Segundo
Performing Provider: Julianne
Reason for Consultation: SBO
Medical History
-
Chief Complaint: Abd pain
History of Present Illness:
59F now to our service for prior SBO and ileostomy with prolapse in setting of scleroderma and chronic dysmotility s/p RYGB. Last here in 2022, in the interim she had her ileostomy reversed and for the past year has done well with no issues.
Yesterday she developed abd pain, mostly to left nila abdomen. A/w nausea and vomiting. She has been passing flatus. Last BM yesterday, watery diarrhea. She lives with her daughter who had a gastroenteritis last week.
Past Medical History
Past Medical History: Other (Systemic Scleroderma Sjogren's Syndrome Raynaud's Psychogenic Nonepileptic Seizures Hx Stroke secondary to patent foramen ovale which has been subsequently closed Hypothyroidism Anxiety/Depression GERD/Anastomotic Ulcer)
Past Surgical History: Other (Gastric Bypass Multiple Small Bowel Resections Subtotal Colectomy / J-Pouch Ileostomy 2021 right side abdomen, revision with left side abdomen ileostomy February 2022 Cholecystectomy Appendectomy PFO Device Closure
Tonsillectomy)
Social History
Tobacco: Non-Smoker
Alcohol: None
Drug: None
Personal:
Living: With Family
Family History
Family History: Reviewed & Noncontributory
Allergies / Home Medications
Allergy/AdvReac Type Severity Reaction Status Date / Time
Cephalosporins Allergy rash, Verified 06/22/24 13:48
swelling
fentanyl Allergy PATCH-RASH/ Verified 06/22/24 13:48
SWELLING
ketamine Allergy rash,swelli Verified 06/22/24 13:48
ng
ketorolac [From Toradol] Allergy rash,swelli Verified 06/22/24 13:48
ng
levofloxacin [From Levaquin] Allergy rash,swelli Verified 06/22/24 13:48
ng
micafungin Allergy RASH/SWELLI Verified 06/22/24 13:48
NG
morphine Allergy rash,swelli Verified 06/22/24 13:48
ng
NSAIDS (Non-Steroidal Allergy rash,swelli Verified 06/22/24 13:48
Anti-Inflamma ng
Penicillins Allergy rash,swell Verified 06/22/24 13:48
prochlorperazine Allergy Rash Verified 06/22/24 13:48
tramadol Allergy rash,swelli Verified 06/22/24 13:48
ng
acetaminophen [From Tylenol] AdvReac upset Verified 06/22/24 13:48
stomach
�Medication �Instructions �Recorded �Confirmed �Type
cholecalciferol (vitamin D3) 25 1,000 units PO DAILY Supplement 09/13/21 06/22/24 History
mcg (1,000 unit) tablet
cyanocobalamin (vitamin B-12) 1,000 mcg PO DAILY Supplement 09/13/21 06/22/24 History
1,000 mcg tablet
duloxetine 60 mg capsule,delayed 120 mg PO DAILY mental health 09/13/21 06/22/24 History
release (Cymbalta)
gabapentin 300 mg capsule 600 mg PO HS Pain 09/13/21 06/22/24 History
trazodone 100 mg tablet 200 mg PO HS Sleep 09/13/21 06/22/24 History
buspirone 30 mg tablet 30 mg PO BID Mental Health/Anxiety 06/22/24 06/22/24 History
olanzapine 5 mg tablet 5 mg PO HS Neurological Condition 06/22/24 06/22/24 History
ondansetron HCl 4 mg tablet 4 mg PO Q8HPRN PRN nausea 06/22/24 06/22/24 History
pantoprazole 40 mg tablet,delayed 40 mg PO BID Gastrointestinal Issue 06/22/24 06/22/24 History
release
rimegepant 75 mg disintegrating 75 mg PO Q48H migraine 06/22/24 06/22/24 History
tablet (Nurtec ODT)
suvorexant 15 mg tablet (Belsomra) 15 mg PO HS Sleep 06/22/24 06/22/24 History
Review of Systems
-
A 10 point review of systems was completed, and was negative except as per HPI.
Physical Exam
Vital Signs
Temp Pulse Resp BP Pulse Ox
98.8 F 74 13 113/75 97
06/23/24 07:25 06/23/24 07:25 06/23/24 07:25 06/23/24 07:25 06/23/24 07:25
06/22/24 06/23/24 06/24/24
06:59 06:59 06:59
Actual Weight 61.2 kg
Body Mass Index (BMI) 23.9
Lab Results
06/23/24 04:55
06/23/24 04:55
WBC 7.0 10^3/uL (4.8-10.8) 06/23/24 04:55
Hgb 13.2 g/dL (12.0-16.0) 06/23/24 04:55
Hct 40.4 % (37.0-47.0) 06/23/24 04:55
Plt Count 222 10^3/uL (130-400) 06/23/24 04:55
Abs Immat Gran (auto) 0.0 10^3/uL (0-0.05) 06/22/24 17:41
Neutrophils % 67.6 % (42.2-75.2) 06/22/24 17:41
Physical Exam
General: No Apparent Distress
HEENT: Normocephalic and Anicteric
GI: Soft, Non Distended and Tender (ttp to left nila abdomen without guarding)
Skin: Warm and Dry
Neuro: AO x 3
Psych: Calm
Data Reviewed
-
CT Scan: Image Personally Visualized and interpreted, Report Reviewed by me and Discussed with Patient
Labs: Labs Reviewed by me and Discussed with Patient
Old Records: Reviewed
Assessment / Plan
-
59F with PSBO in setting of multiple abd surgeries and recent sick contact
AFVSS, mild ttp to left nila-abdomen without guarding, passing flatus, diarrhea yesterday
Labs unremarkable
CT A/P with patent low anastomosis, stool and air to rectum, dilated proximal sb loops with air, suspected transition point in LUQ, no signs of bowel threat or compromise
Plan:
NPO/IVF
PRN anti-emetics and pain meds
If vomiting, place NGT
If no improvmeent in 24 hours consider PO contrast study
DVT ppx
Jose follow
[2024-06-23 15:05] LABS: Amphetamines Negative (Negative); Barbiturates Negative (Negative); Benzodiazepines Negative (Negative); Buprenorphine Positive (Negative); Cocaine Negative (Negative); Marijuana Negative (Negative); Methadone Negative (Negative); Methamphetamines Negative (Negative); Opiates Positive (Negative); Phencyclidine Negative (Negative); Tricyclic Antidepressants Negative (Negative)
[2024-06-23 15:26] LABS: Fentanyl, Urine Negative (Negative)
[2024-06-23 15:31] VITALS: BP 133/81
[2024-06-23] MEDS: IMITREX 6 MG SC (19:12)
[2024-06-23] MEDS: BENADRYL IV (21:14)
[2024-06-23 23:15] VITALS: BP 114/69
[2024-06-24] MEDS: DILAUDID 0.5 MG IV ×4 (00:22→09:53)
[2024-06-24] MEDS: ZOFRAN 4 MG IV ×2 (00:27→06:41)
[2024-06-24] MEDS: LR 1000 IV (05:10)
[2024-06-24 07:00] VITALS: BP 117/73
[2024-06-24 07:40] LABS: % Basophils 0.8 % (0-2); % Eosinophils 1.1 % (0-6); % Immature Granulocytes 0.5 % (0-0.5); % Lymphocytes 9.8 % (20.5-51.1); % Monocytes 8.1 % (1.7-9.3); % Neutrophils 79.7 % (42.2-75.2); Absolute Basophils 0.1 10^3/uL (0-0.2); Absolute Eosinophils 0.1 10^3/uL (0-0.7); Absolute Lymphocytes 0.8 10^3/uL (1.2-3.4); Absolute Monocytes 0.6 10^3/uL (0.1-0.6); Absolute Neutrophils 6.3 10^3/uL (1.4-6.5); Hematocrit 41.2 % (37.0-47.0); Hemoglobin 13.1 g/dL (12.0-16.0); Mean Corp Hgb Conc. 31.8 g/dL (33.0-37.0); Mean Corpuscular Hgb 29.6 pg (27.0-31.0); Mean Platelet Volume 9.9 fL (7.4-10.4); Nucleated Red Blood Cells % 0 %; Platelet Count 240 10^3/uL (130-400); Red Blood Cell Count 4.43 10^6/uL (4.20-5.40); Red Cell Dist. Width 14.2 % (11.5-14.5)
[2024-06-24] MEDS: PROTONIX IV 40 MG IV (08:01)
[2024-06-24 08:11] LABS: Blood Urea Nitrogen 5 mg/dl (7-17); Calcium 8.6 mg/dl (8.4-10.2); Carbon Dioxide 25 mmol/L (22-30); Chloride 105 mmol/L (98-107); Estimated Creatinine Clearance 73 ml/min; Glucose 70 mg/dl (70-99); Potassium 4.2 mmol/L (3.5-5.1); Sodium 138 mmol/L (135-145); eGFR > 60.00
--- NOTE | 2024-06-24 10:45 | W.PN.GS2 ---
Today's Communication / Plan
-
-- Trial of clears
Assessment / Plan
-
Patient is a 59 yo F p/w partial SBO secondary to adhesions and dysmotility
AVSS
Labs unremarkable
Signs of clinical improvement. No plans for surgical intervention. Plan fo trial of clears.
-- Clears
Subjective Data
-
Date of Service: June 24, 2024
Feels improved, though continued pain. No nausea or emesis. Passing flatus and loose stool. Afebrile.
Objective Data
-
Intake and Output
06/23/24 06/24/24 06/25/24
06:59 06:59 06:59
Intake Total 1250 / 1250
Balance 1250 / 1250
Intake:
Oral fluids 50 / 50
IV fluids (Total) 1200 / 1200
Other:
Number of approximated MODERATE 6
amounts of urine
Vital Signs
Temp Pulse Resp BP Pulse Ox
98.4 F 79 14 117/73 98
06/24/24 07:00 06/24/24 07:00 06/24/24 07:00 06/24/24 07:00 06/24/24 07:00
Lab Results
06/24/24 06:37
06/24/24 06:37
Calcium 8.6 mg/dl (8.4-10.2) 06/24/24 06:37
Total Bilirubin 0.6 mg/dl (0.2-1.3) 06/22/24 17:41
AST 21 U/L (14-36) 06/22/24 17:41
ALT 15 U/L (0-35) 06/22/24 17:41
Alkaline Phosphatase 73 U/L (38-126) 06/22/24 17:41
Total Protein 5.9 g/dl (6.3-8.2) L 06/22/24 17:41
Albumin 3.5 g/dl (3.5-5.0) 06/22/24 17:41
Physical Exam
-
Gen: NAD
Abd: soft, mild/moderate tenderness to palpation, ND, non-peritoneal, prior incisions well healed, palpable fullness in RLQ, tender, no skin changes, soft, non-reducible (CT imaging reviewed and no clear hernia)
Patient has a cramer catheter: No
Patient has a central line: No
--- NOTE | 2024-06-24 11:17 | W.PN.HOSP.TC ---
Addendum entered and electronically signed by Ramu Raymond MD 06/24/24 14:37:
Patient diet was advanced to clear liquid diet. Patient was able to tolerate clears. Patient insisting on going home. Patient was explained the risk of recurrence of small bowel obstruction leading to severe nausea, vomiting, abdominal pain,
hypovolemic shock, concern for ischemic bowel and . Patient states she has been through this before and would like to go home. Patient signed against medical form. Patient verbalized understanding. Patient was offered to continue staying in
the hospital and her symptoms and medical condition be managed by physicians and be taken care of by the healthcare team. Patient refused. Patient understood the risk and signed the form. Awaiting for IV team to remove right IJ catheter.
More than 30 minutes spent in discharge including
Final examination of the patient
Summarizing hospital stay
Instructions for continuing care to all relevant caregivers
Preparation of discharge records, prescriptions, and referral forms
Total time spent (in minutes): 50
Original Note:
Today's Communication/Plan
-
DC IV fluid later today
Clear started
Restart home meds
Surgery recs
Assessment / Plan
Assessment / Plan
General: In mild distress due to pain
HEENT: Moist mucous membranes and PERRLA, RIJ Central line noted
Respiratory: Clear; No Wheezes, Rales or Rhonchi
Cardiac: S1/S2 and Regular Rhythm; No Murmur
GI: Soft and Other (Normal bowel sounds. Pos tenderness - mostly in the R SIDE of upper/lower abdomen. Scarring from prior surgeries evident.)
Musculoskeletal: No Clubbing, No Cyanosis and No Edema
Neuro: AO x 3
A/P: Patient is a 59y F with PMH significant for Sjogren's / systemic sclerosis and multiple prior bowel issues / surgeries who presents to ED complaining of abdominal pain.
#SBO
#History multiple small bowel obstructions with resection
#History ileostomy 12/18/2021 side abdomen, revision to left side abdomen February 2022 s/p reversal
- CT scan shows SBO with possible transition point in the LUQ area.
- Patient had loose BM earlier today
- Supportive care, pain control, antiemetics, IVF
- Low threshold for NG decompression if pain cannot be controlled or patient has recurrent emesis.
- Started on clears per surgery. Advance diet per surgery.
Systemic Scleroderma
Sjogren's Syndrome
- No longer appears to be on any disease modifying therapies.
- Previously on Plaquenil.
Chronic Pain Syndrome
Chronic Opioid Use Disorder
- Patient with recent Rx for Suboxone per PDMP - though she states that she has not taken this in over a month.
- Prior records reviewed. Myriad allergies including most non-narcotic pain medications - in fact, everything except for Dilaudid.
- UDS noted
- Try to minimize opioid pain medication - though significantly limited by stated allergies.
- Follow-up with Pain Management / Addiction Medicine as an outpatient.
Anxiety / Depression
- Restart home meds
DVT Prophylaxis: Lovenox
Code Status: Full
Anticipated Discharge: Within 24 hours
Subjective/Interval History
-
Date of Service: June 24, 2024
States of passing flatulence
States had liquid bowel movement earlier today
Some nausea but no vomiting
Objective Data
-
Labs:
Laboratory Results
06/24/24
06:37
WBC 8.0
Hgb 13.1
Hct 41.2
Plt Count 240
Sodium 138
Potassium 4.2
Chloride 105
Carbon Dioxide 25
BUN 5 L
Creatinine 0.7
Glucose 70
Calcium 8.6
Vital Signs:
Vital Signs
Temp Pulse Resp BP Pulse Ox
98.4 F 79 14 117/73 98
06/24/24 07:00 06/24/24 07:00 06/24/24 07:00 06/24/24 07:00 06/24/24 07:00
I&O
06/23/24 06/24/24 06/25/24
06:59 06:59 06:59
Intake Total 1250 / 1250
Balance 1250 / 1250
--- NOTE | 2024-06-24 11:51 | PTCARENOTE ---
Walked patients home sleeping medication (Belsomra) to pharmacy and personally handed it to pharmacist Jennifer as it is a controlled medication.
[2024-06-24] MEDS: BUSPAR 30 MG PO (12:12)
[2024-06-24] MEDS: IMITREX 25 MG PO (12:12)
[2024-06-24] MEDS: CYMBALTA DELAYED RELEASE 120 MG PO (12:13)
--- NOTE | 2024-06-24 14:37 | W.DCSUMMARY ---
Discharge Summary
Discharge Data
Date of Admission: 06/22/24
Date of Discharge: 06/24/24
-
Pending Results: Yes
Additional Pending Results:
Urine culture with PCP
Hospital Course
59-year-old female past medical history of systemic scleroderma, Sjogren's syndrome, Raynaud's, psychogenic nonepileptic seizure, history of CVA hypothyroidism anxiety depression, GERD, multiple history of abdominal surgery including gastric bypass,
bowel resections status post ileostomy status post reversal, cholecystectomy, appendectomy PFO device closure who is presenting with complaints of persistent abdominal pain. Also surgery with severe nausea and vomiting. Patient said the pain
subsequently worsened and she has to come into the ER. Stated her abdominal pain felt like her previous episode of bowel obstruction. Patient underwent CT abdomen pelvis with IV contrast only which showed Suspect partial proximal small bowel
obstruction with transition point in the left upper quadrant, possibly secondary to adhesions or internal hernia. Patient was started on IV fluids. Patient was started on IV pain medications and antinausea medication. Patient was eval by patient
surgery. Patient with improvement in pain over the next 24 hours and with increased flatulence. Patient had liquid bowel movement in 06/24/2024. Patient diet was advanced per surgery clear liquids. Patient was able to tolerate clears. Patient
insisting on going home. Patient was explained the risk of recurrence of small bowel obstruction leading to severe nausea, vomiting, abdominal pain, hypovolemic shock, concern for ischemic bowel and . Patient states she has been through this
before and would like to go home. Patient signed AMA form. Patient verbalized understanding. Patient was offered to continue staying in the hospital and her symptoms and medical condition be managed by physicians and be taken care of by the
healthcare team. Patient denies any dysuria or flank pain. Recommended to follow with primary doctor if with any urinary symptoms patient verbalizes understanding as she did state she has allergic to multiple antibiotics. Patient refused to stay
in hospital after prolong discussion. Patient understood the risk and signed the form. IV team to remove right IJ catheter.
Discharge Plan
-
Patient Disposition: Against Medical Advice
Discharge Diagnosis/Procedures: Small bowel obstruction
Asymptomatic bacteriuria
Condition: Fair
Diet: Other diet
Additional Diets: clears
Activity Restrictions/Additional Instructions:
Recommend to follow-up with your primary doctor in regards if with any urinary symptoms.
Referrals:
Venkat Valdez MD [Family Provider] - in less than 1 week
Prescriptions:
Continued
trazodone 100 MG tablet
200 mg PO HS
gabapentin 300 MG capsule
600 mg PO HS
duloxetine [Cymbalta] 60 mg Capsule,Delayed Release(Dr/Ec)
120 mg PO DAILY
cyanocobalamin (vitamin B-12) 1,000 MCG tablet
1,000 mcg PO DAILY
cholecalciferol (vitamin D3) 1,000 UNITS tablet
1,000 units PO DAILY
ondansetron HCl 4 mg Tablet
4 mg PO Q8HPRN PRN (Reason: nausea)
olanzapine 5 mg Tablet
5 mg PO HS
pantoprazole 40 mg Tablet,Delayed Release (Dr/Ec)
40 mg PO BID
buspirone 30 mg Tablet
30 mg PO BID
Belsomra 15 mg Tablet
15 mg PO HS
Nurtec ODT 75 mg Tablet,Disintegrating
75 mg PO Q48H
Discharge Orders:
Discharge Patient (As Directed); Ordered 06/24/24
Ordered By: Ramu Raymond
Discharge Date and Time
Print Language: ESTONIAN
--- NOTE | 2024-06-24 14:44 | CM ---
Addendum entered by Meg Trujillo RN 06/24/24 14:47:
Patient left AMA.
Original Note:
CM reviewed medical records. Patient is ready for discharge. No CM needs noted.
PLAN: home no needs.
--- NOTE | 2024-06-24 14:58 | PTCARENOTE ---
Patient keeps asking RN if she go home, despite Dr. Nagy and Dr. Raymond explaining to patient that they would like to make sure she can tolerate a low residue diet before sending her home. She told RN that doesn't want to try a low residue diet
and that she tolerated clears just now. She is anxious, wants to get home because 'being in this environment messes her up'. I gave her the am [employer] psych meds she was asking for. She told me she is on ozempic and said she will 'sit here all day
without an appetite'. She continues on to state she will leave AMA soon if the doctors do not discharge her. RN relayed this information to both physicians and again, restated and reeducated patient on rationales for her plan of care. After
educating patient, patient still states she would like to leave ama and wants her right IJ removed so she can go home.
[2024-06-24 15:00] VITALS: BP 133/78
== END 2024-06-24 15:44 | disposition left against medical advice (07) | DRG 390 ==
LOC: 1 ACUTE 20:13
PROVIDERS: Emergency Medicine; Nurse Practitioner; Radiology Vascular & Interventional Radiology; ADMITTING PHYSICIAN Hospitalist; ATTENDING PHYSICIAN Hospitalist; CONSULT PHYSICIAN Surgery; EMERGENCY PHYSICIAN Emergency Medicine; FAMILY PHYSICIAN Internal Medicine
PROC: 05HM33Z Insertion of Infusion Device into Right Internal Jugular Vein, Percutaneous Approach (ICD-10-PCS; 2024-06-23)
PROC: B5131ZA Fluoroscopy of Right Jugular Veins using Low Osmolar Contrast, Guidance (ICD-10-PCS; 2024-06-23)
DX: K56.51 Intestinal adhesions [bands], with partial obstruction (principal); M34.9 Systemic sclerosis, unspecified; I73.00 Raynaud's syndrome without gangrene; M35.00 Sjogren syndrome, unspecified; K21.9 Gastro-esophageal reflux disease without esophagitis; F44.5 Conversion disorder with seizures or convulsions; E03.9 Hypothyroidism, unspecified; F41.9 Anxiety disorder, unspecified; F11.10 Opioid abuse, uncomplicated; F32.A Depression, unspecified; G89.4 Chronic pain syndrome; M79.7 Fibromyalgia; R82.71 Bacteriuria; G43.909 Migraine, unspecified, not intractable, without status migrainosus; Z87.19 Personal history of other diseases of the digestive system; Z98.84 Bariatric surgery status; Z86.73 Personal history of transient ischemic attack (TIA), and cerebral infarction without residual deficits; Z90.49 Acquired absence of other specified parts of digestive tract; Z88.6 Allergy status to analgesic agent; Z88.1 Allergy status to other antibiotic agents; Z88.5 Allergy status to narcotic agent; Z88.8 Allergy status to other drugs, medicaments and biological substances; Z79.891 Long term (current) use of opiate analgesic; Z88.0 Allergy status to penicillin
CPT/HCPCS: 36556; 74022; 74177; 76937; 77001; 80048; 80053; 80306; 80307; 81003; 81015; 83690; 85025; 85027; 86900; 86901; 87086; 87088; 87186; Q9967

== ENCOUNTER 2024-09-26 16:44 | Emergency (ER) | payer MEDICARE, BC, SELFPAY ==
[2024-09-26 16:46] VITALS: BP 120/79
--- NOTE | 2024-09-26 17:12 | ED.GENMED ---
History of Present Illness
General
Chief Complaint: Abdominal Symptoms
Time Seen by Provider: 09/26/24 17:02
History of Present Illness
History of Present Illness:
Patient is a 59f with a history of systemic scleroderma, Sjogren's syndrome, Raynaud's, psychogenic nonepileptic seizure, history of CVA hypothyroidism anxiety depression, GERD, multiple history of abdominal surgery including gastric bypass, bowel
resections status post ileostomy status post reversal, cholecystectomy, appendectomy who presents to the emergency department with abdominal pain. Symptoms started on Friday. She endorses gradually worsening abdominal pain and distention since
that time. Associated with numerous episodes of vomiting and liquid stool. Feels similar to prior bowel obstructions. No fever.
Past History
Past History
ED Past Medical History: CVA (stroke 2003 presumed to be due to patent foramen ovale), Fibromyalgia (systemic scleroderma, Raynaud's, Sjogren's disease), GERD, Psychiatric (Anxiety, depression) and Other (Irritable bowel syndrome, scleroderma,
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
ED Past Surgical History: Appendectomy, Bowel resection (Ileostomy), Cardiac (foramen ovale closure 2004), Cholecystectomy, Orthopedic (bilateral carpal tunnel releases), Tonsilectomy, Urological (Bladder sent) and Other (Gastric bypass, bowel
resection, SBOs, Hernia, Eye surgery, )
Social History
Tobacco: Non-smoker
Alcohol: None
Drug: None
Personal:
Living: with family
Employment: Employed
Family History
Family History: Other (reviewed and noncontributory)
Phy Exam
Physical Exam
Physical Exam:
GENERAL APPEARANCE: In mild distress from pain
EYES lids/conjunctiva normal
EARS/NOSE/THROAT Mucous membranes moist, uvula midline without oral pharyngeal erythema, exudate or swelling
HEAD/NECK normocephalic atraumatic, neck is supple.
RESPIRATORY respiratory effort normal, speaks in full sentences, no accessory muscle use. Lungs clear to auscultation without rhonchi, wheezes, rales
CARDIAC Regular rate and rhythm, no edema.
ABDOMINAL numerous prior abdominal surgery scars. There is mild distention and tenderness diffusely. No peritoneal signs. Increased bowel sounds.
MUSCLES/EXTREMITIES No abnormal range of motion, no swelling.
SKIN Warm, pink and dry. No rashes
NEUROLOGICAL Speech is clear and appropriate. Normal level of consciousness. 5/5 strength in all extremities.
PSYCH Normal mood and affect. Judgement/competence is appropriate
Course
Orders/Labs/Results
Orders:
Orders
09/26/24 17:05
CT Abd/Pel (IV only)-DH only Urgent
Comment:
Reason For Exam: abdominal pain
09/26/24 17:09
0.9% Sodium Chloride 1000 ml [Nss] 1,000 ml IV BOLUS
Ondansetron Injectable [Zofran] 4 mg IV NOW STA
09/26/24 17:11
HYDROmorphone [Dilaudid] 0.5 mg IV NOW STA
09/26/24 18:21
Complete Blood Count/With Diff Urgent
Lactate Level [Lactic Acid] Urgent
09/26/24 19:48
Comprehensive Metabolic Panel Urgent
Lipase Urgent
09/26/24 19:55
HYDROmorphone [Dilaudid] 1 mg IV NOW STA
09/26/24 19:56
HYDROmorphone [Dilaudid] 1 mg .ROUTE .STK-MED ONE
09/26/24 23:36
Urinalysis Reflex To Culture Urgent
Date Specimen was Collected: 09/26/24
Time Specimen was Collected: 23:16
Abnormal Lab Results
09/26/24 09/26/24
18:21 19:48
RBC 4.02 L 10^6/uL
(4.20-5.40)
MCHC 32.2 L g/dL
(33.0-37.0)
Absolute Lymphs (auto) 0.6 L 10^3/uL
(1.2-3.4)
Neutrophils % 79.2 H %
(42.2-75.2)
Lymphocytes % 9.8 L %
(20.5-51.1)
Chloride 108 H mmol/L
(98-107)
BUN 6 L mg/dl
(7-17)
Total Protein 6.2 L g/dl
(6.3-8.2)
09/26/24 18:21
09/26/24 19:48
Vital Signs
Initial and Last Documented VS:
Initial Vital Signs
Temp Pulse Resp BP Pulse Ox
98.0 F 94 20 120/79 99
09/26/24 16:46 09/26/24 16:46 09/26/24 16:46 09/26/24 16:46 09/26/24 16:46
Last Documented Vital Signs
Temp Pulse Resp BP Pulse Ox
98.0 F 73 14 103/66 94
09/26/24 16:46 09/27/24 01:00 09/27/24 01:00 09/27/24 01:00 09/27/24 01:00
*Pulse Oximetry
SaO2: 99
Oxygen Mode of Delivery: Room air
Patient hypoxic: no
*Critical Care Note
Total Time (30-74mins, 75-104mins- exclusive of procedures): Not Applicable
ED Attending Note
ED Attending Note
ED Attending Note:
Patient with complex past medical history presents with diffuse abdominal pain, nausea, vomiting, diarrhea. Concern for bowel obstruction versus intra-abdominal infection. Plan for labs, CT, symptomatic treatment and reassessment.
No acute findings on CT scan. Labs are reassuring
Hemodynamically stable
No peritoneal signs on exam
instructed to follow up with primary doctor in the next few days
return precautions given
-
Portions of this chart may have been created with voice recognition software.� Occasional wrong word or��sound alike� substitutions may have occurred due to the inherent limitations of voice recognition software.
Discharge Plan
Departure
Patient Disposition: Home (Routine Discharge)
Date of Disposition: 09/27/24
Time of Disposition: 01:23
Patient with high blood pressure during this ER visit?: No
Discharge Problem:
Abdominal pain
Instructions: Abdominal Pain
Prescriptions:
No Action
trazodone 100 MG tablet
200 mg PO HS
gabapentin 300 MG capsule
600 mg PO HS
duloxetine [Cymbalta] 60 mg Capsule,Delayed Release(Dr/Ec)
120 mg PO DAILY
cyanocobalamin (vitamin B-12) 1,000 MCG tablet
1,000 mcg PO DAILY
cholecalciferol (vitamin D3) 1,000 UNITS tablet
1,000 units PO DAILY
ondansetron HCl 4 mg Tablet
4 mg PO Q8HPRN PRN (Reason: nausea)
olanzapine 5 mg Tablet
5 mg PO HS
pantoprazole 40 mg Tablet,Delayed Release (Dr/Ec)
40 mg PO BID
buspirone 30 mg Tablet
30 mg PO BID
Belsomra 15 mg Tablet
15 mg PO HS
Nurtec ODT 75 mg Tablet,Disintegrating
75 mg PO Q48H
Referrals:
Venkat Valdez MD [Family Provider, Internal Medicine]
Activity Restrictions/Additional Instructions:
please follow up with your doctor in the next few days for recheck
return to the ER with new or worsening symptoms
Interventions
Interventions:
*Risk Screen - Suicide Last Done: 09/27/24 01:01
*General Assessment Last Done: 09/26/24 16:46
*Neglect/Abuse Screening Last Done: 09/27/24 01:01
*ED- Fall Risk Assessment Last Done: 09/27/24 01:01
*ED COVID-19 Vaccine History Last Done: 09/27/24 01:01
*Nursing Disposition Last Done: 09/27/24 01:52
SY-Mmpjuq-Dqongkoqwa Assessment Last Done: 09/26/24 19:30
Discharge Date and Time
Discharge Date/Time: 09/27/24 01:53
Print Language: SUDANESE
[2024-09-26 18:30] LABS: % Basophils 1.3 % (0-2); % Eosinophils 1.6 % (0-6); % Immature Granulocytes 0.5 % (0-0.5); % Lymphocytes 9.8 % (20.5-51.1); % Monocytes 7.6 % (1.7-9.3); % Neutrophils 79.2 % (42.2-75.2); Absolute Basophils 0.1 10^3/uL (0-0.2); Absolute Eosinophils 0.1 10^3/uL (0-0.7); Absolute Lymphocytes 0.6 10^3/uL (1.2-3.4); Absolute Monocytes 0.5 10^3/uL (0.1-0.6); Hematocrit 37.6 % (37.0-47.0); Hemoglobin 12.1 g/dL (12.0-16.0); Mean Corp Hgb Conc. 32.2 g/dL (33.0-37.0); Mean Corpuscular Hgb 30.1 pg (27.0-31.0); Mean Corpuscular Volume 93.5 fL (81.0-99.0); Mean Platelet Volume 10.1 fL (7.4-10.4); Nucleated Red Blood Cells % 0 %; Platelet Count 268 10^3/uL (130-400); Red Blood Cell Count 4.02 10^6/uL (4.20-5.40); Red Cell Dist. Width 14.4 % (11.5-14.5); White Blood Cell Count 6.3 10^3/uL (4.8-10.8)
[2024-09-26] MEDS: ZOFRAN 4 MG IV (18:39)
[2024-09-26] MEDS: DILAUDID 0.5 MG IV (18:40)
[2024-09-26 18:44] LABS: Lactic Acid 0.9 mmol/L (0.7-2.0)
[2024-09-26 19:00] VITALS: BP 121/71
[2024-09-26] MEDS: NSS 1000 IV (19:52)
[2024-09-26] MEDS: DILAUDID 1 MG IV (19:56)
[2024-09-26 21:00] VITALS: BP 101/65
[2024-09-26 22:00] VITALS: BP 110/73
[2024-09-26 22:44] LABS: ALT (SGPT) 17 U/L (0-35); AST (SGOT) 21 U/L (14-36); Albumin 3.7 g/dl (3.5-5.0); Alkaline Phosphatase 85 U/L (38-126); Blood Urea Nitrogen 6 mg/dl (7-17); Calcium 9.1 mg/dl (8.4-10.2); Carbon Dioxide 29 mmol/L (22-30); Chloride 108 mmol/L (98-107); Glucose 96 mg/dl (70-99); Lipase 118 U/L (23-300); Potassium 4.7 mmol/L (3.5-5.1); Sodium 140 mmol/L (135-145); Total Bilirubin 0.8 mg/dl (0.2-1.3); Total Protein 6.2 g/dl (6.3-8.2); eGFR > 60.00
[2024-09-26 23:00] VITALS: BP 100/67
[2024-09-26 23:43] LABS: Urine Albumin Negative (Neg - Trace); Urine Bilirubin Negative (Negative); Urine Character Clear (Clear); Urine Color Yellow; Urine Glucose Negative (Negative); Urine Ketone Negative (Negative); Urine Leukocyte Negative (Negative); Urine Nitrite Negative (Negative); Urine Occult Blood Negative (Negative); Urine Urobilinogen Negative (Neg - 1+); Urine pH 6.5 (5.0-9.0)
[2024-09-27] VITALS: BP 100/65
[2024-09-27 01:00] VITALS: BP 103/66
== END 2024-09-27 01:53 | disposition home or self-care (01) ==
LOC: EMR 16:44
PROVIDERS: EMERGENCY PHYSICIAN Emergency Medicine; FAMILY PHYSICIAN Internal Medicine
DX: R10.84 Generalized abdominal pain (principal); R11.2 Nausea with vomiting, unspecified; R19.7 Diarrhea, unspecified; E03.9 Hypothyroidism, unspecified; I73.00 Raynaud's syndrome without gangrene; M35.00 Sjogren syndrome, unspecified; Z86.73 Personal history of transient ischemic attack (TIA), and cerebral infarction without residual deficits; Z98.84 Bariatric surgery status
CPT/HCPCS: 96374; 96375; 96376; 96361; 99284; 74177; 80053; 81003; 83605; 83690; 85025; Q9967

== ENCOUNTER 2024-10-07 02:33 | Inpatient (IN) | payer MEDICARE, BC, SELFPAY ==
[2024-10-06 15:01] VITALS: BMI 25.4
[2024-10-06 15:08] VITALS: BP 123/75
--- NOTE | 2024-10-06 18:42 | ED.GENMED ---
History of Present Illness
<Robin Collazo PA-C - Last Filed: 10/06/24 19:22>
General
Chief Complaint: Abdominal Pain
Source: patient
Time Seen by Provider: 10/06/24 18:26
History of Present Illness
History of Present Illness:
59-year-old female with past medical history of CVA, migraine disorder, multiple bowel surgeries including previous gastric bypass, multiple bowel resections, appendectomy and cholecystectomy presenting to the ER for worsening abdominal pain, seen
in this ER about 10 days ago for the same, pain is now worse but overall the quality and location is the same. Patient has a follow-up scheduled with her GI at [facility] this coming Friday, had a telehealth visit with them last week and was told
that if any of her symptoms were to worsen she should come back to the emergency department. She denies any fevers, chills, rigors but does still endorse some nausea and difficulty tolerating p.o. No chest pain or shortness of breath or any other
concerns. She was unable to take any medications prior to arrival.
Past History
<Robin Collazo PA-C - Last Filed: 10/06/24 19:22>
Past History
ED Past Medical History: CVA (stroke 2003 presumed to be due to patent foramen ovale), Fibromyalgia (systemic scleroderma, Raynaud's, Sjogren's disease), GERD, Psychiatric (Anxiety, depression) and Other (Irritable bowel syndrome, scleroderma,
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
ED Past Surgical History: Appendectomy, Bowel resection (Ileostomy), Cardiac (foramen ovale closure 2004), Cholecystectomy, Orthopedic (bilateral carpal tunnel releases), Tonsilectomy, Urological (Bladder sent) and Other (Gastric bypass, bowel
resection, SBOs, Hernia, Eye surgery, )
Social History
Tobacco: Non-smoker
Alcohol: None
Drug: None
Personal:
Living: with family
Employment: Employed
Family History
Family History: Other (reviewed and noncontributory)
Review of Systems
<Robin Collazo PA-C - Last Filed: 10/06/24 19:22>
Review of Systems
All Other Systems: ROS reviewed and negative except as documented in HPI and ROS
Phy Exam
<Robin Collazo PA-C - Last Filed: 10/06/24 19:22>
Physical Exam
Physical Exam:
GENERAL: Alert , appears uncomfortable, grimacing
EYE: clear conjunctiva b/l
HEAD: NCAT
ENT: mmm.
CARDIAC: Regular rate and rhythm .
LUNGS: Clear breath sounds bilaterally, no acute respiratory distress, no wheezes/rales/rhonchi
ABDOMEN: Multiple old surgical scars appear well-healed and without signs of infection, diffusely tender, somewhat distended, nonperitoneal, normoactive bowel sounds
NEUROLOGICAL: Alert and oriented
SKIN: Warm and dry, skin intact.
MUSCULOSKELETAL: No edema, well perfused.
PSYCH: Normal and appropriate interaction.
Scores
<Robin Collazo PA-C - Last Filed: 10/06/24 19:22>
Heart Failure Risk
Heart Failure Risk Score: Not Applicable
Heart Score for Chest Pain Patients
STEMI patient?: Not applicable
Withdrawal Assessment of Alcohol
Withdrawal Assessment Completed?: Not applicable
Course
<Robin Collazo PA-C - Last Filed: 10/06/24 19:22>
Orders/Labs/Results
Orders:
Orders
10/06/24 18:27
CR Obstruct Series W/pa Chest Urgent
Comment:
Reason For Exam: hx bowel obstruction, pain, vomiting
10/06/24 18:28
Electrocardiogram (*1) Urgent
Reason for Study: Abdominal Pain
EKG- Treatment ONCE
10/06/24 18:42
0.9% Sodium Chloride 1000 ml [Nss] 1,000 ml IV BOLUS
HYDROmorphone [Dilaudid] 1 mg IV NOW STA
Ondansetron Injectable [Zofran] 4 mg IV NOW STA
10/06/24 19:01
Complete Blood Count/With Diff Urgent
10/06/24 21:11
Comprehensive Metabolic Panel Urgent
Lipase Urgent
Troponin I Urgent
10/06/24 22:09
CT Abd/pelvis W Iv Cont Urgent
Comment:
Reason For Exam: diffuse abdominal pain, hx obstruction
10/07/24 00:24
HYDROmorphone [Dilaudid] 0.5 mg IV NOW STA
Abnormal Lab Results
10/06/24 10/06/24
19:01 21:11
MCHC 32.4 L g/dL
(33.0-37.0)
RDW 16.3 H %
(11.5-14.5)
Absolute Neuts (auto) 7.3 H 10^3/uL
(1.4-6.5)
Neutrophils % 76.8 H %
(42.2-75.2)
Lymphocytes % 14.3 L %
(20.5-51.1)
Sodium 134 L mmol/L
(135-145)
Chloride 109 H mmol/L
(98-107)
Glucose 100 H mg/dl
(70-99)
10/06/24 19:01
10/06/24 21:11
Vital Signs
Initial and Last Documented VS:
Initial Vital Signs
Temp Pulse Resp BP Pulse Ox
98.5 F 91 18 123/75 99
10/06/24 15:08 10/06/24 15:08 10/06/24 15:08 10/06/24 15:08 10/06/24 15:08
Last Documented Vital Signs
Temp Pulse Resp BP Pulse Ox
98.5 F 67 16 114/79 100
10/06/24 15:08 10/06/24 20:15 10/06/24 22:00 10/06/24 20:00 10/06/24 20:15
<Krissy Higuera PA-C - Last Filed: 10/07/24 01:00>
Orders/Labs/Results
Orders:
Orders
10/06/24 18:27
CR Obstruct Series W/pa Chest Urgent
Comment:
Reason For Exam: hx bowel obstruction, pain, vomiting
10/06/24 18:28
Electrocardiogram (*1) Urgent
Reason for Study: Abdominal Pain
EKG- Treatment ONCE
10/06/24 18:42
0.9% Sodium Chloride 1000 ml [Nss] 1,000 ml IV BOLUS
HYDROmorphone [Dilaudid] 1 mg IV NOW STA
Ondansetron Injectable [Zofran] 4 mg IV NOW STA
10/06/24 19:01
Complete Blood Count/With Diff Urgent
10/06/24 21:11
Comprehensive Metabolic Panel Urgent
Lipase Urgent
Troponin I Urgent
10/06/24 22:09
CT Abd/pelvis W Iv Cont Urgent
Comment:
Reason For Exam: diffuse abdominal pain, hx obstruction
10/07/24 00:24
HYDROmorphone [Dilaudid] 0.5 mg IV NOW STA
Abnormal Lab Results
10/06/24 10/06/24
19:01 21:11
MCHC 32.4 L g/dL
(33.0-37.0)
RDW 16.3 H %
(11.5-14.5)
Absolute Neuts (auto) 7.3 H 10^3/uL
(1.4-6.5)
Neutrophils % 76.8 H %
(42.2-75.2)
Lymphocytes % 14.3 L %
(20.5-51.1)
Sodium 134 L mmol/L
(135-145)
Chloride 109 H mmol/L
(98-107)
Glucose 100 H mg/dl
(70-99)
10/06/24 19:01
10/06/24 21:11
Vital Signs
Initial and Last Documented VS:
Initial Vital Signs
Temp Pulse Resp BP Pulse Ox
98.5 F 91 18 123/75 99
10/06/24 15:08 10/06/24 15:08 10/06/24 15:08 10/06/24 15:08 10/06/24 15:08
Last Documented Vital Signs
Temp Pulse Resp BP Pulse Ox
98.5 F 67 16 114/79 100
10/06/24 15:08 10/06/24 20:15 10/06/24 22:00 10/06/24 20:00 10/06/24 20:15
<Robin Collazo PA-C - Last Filed: 10/06/24 19:22>
MDM/Problems Addressed
Differential Diagnosis Includes:
Bowel obstruction
Colitis
Diverticulitis
Chronic pain syndrome
Dehydration
Electrolyte imbalance
Renal dysfunction
GERD, gastritis
Peptic ulcer disease
Pancreatitis
MDM/Problems Addressed:
59-year-old female presenting to the ER for evaluation of abdominal pain, nausea and vomiting, obstructions and patient is concerned for similar. Here 10 days ago and had CT scan which did not show any intra-abdominal abnormalities. Patient
hemodynamically stable. Given she just recently had a CT scan over the last 10 days without any acute pathologies will obtain an obstructive series given she does have significant risk factors for recurring bowel obstruction. Labs ordered.
Patient noted relief with Dilaudid and Zofran on last visit so we will treat with this but will have low threshold to continue to treat with multiple rounds of IV narcotics if patient's pain persists, may require admission for pain control
Chronic conditions affecting care: Previous abdomnial surgery
Acute Exacerbation and/or Progression of Chronic Illness: Previous abdomnial surgery
<Robin Collazo PA-C - Last Filed: 10/06/24 19:22>
*Pulse Oximetry
SaO2: 99
Oxygen Mode of Delivery: Room air
Patient hypoxic: no
*EKG
Interpreted by ED Provider?: Yes
Heart Rate: 71
Rate: normal
Rhythm: sinus
Anderson: normal axis
Ischemia: no ischemia
*Residue Furnace Operator Interpretation
Rate: normal
Heart Rate: 78
Rhythm: sinus
Data Reviewed
Review of Other/Old Records Reveals: Labs, Records and Radiology Studies
<Krissy Higuera PA-C - Last Filed: 10/07/24 01:00>
*Critical Care Note
Total Time (30-74mins, 75-104mins- exclusive of procedures): Not Applicable
<ASHLI Gant Last Filed: 10/07/24 01:00>
Update Note
Update Note:
Update 22:00: Received patient in signout pending labs, obstruction series. Labs without significant abnormalities on CBC or CMP. Troponin undetectable. Obstruction series shows moderate to severe air distention of both colonic loops and small
bowel loops. On reassessment�patient reports persistent significant pain. Abdomen mildly distended without any area of focal tenderness. Given significant GI history as well as persistent pain�will proceed with CT imaging abdomen/pelvis.
Update 00:30: CT scan shows no evidence of bowel obstruction although findings of possible enteritis. Patient remains with significant abdominal discomfort despite multiple rounds of IV narcotic medication. At this point�patient will require
admission for pain management. She remains hemodynamically stable. Case discussed with admitting hospitalist.
ED Attending Note
<Robin Collazo PA-C - Last Filed: 10/06/24 19:22>
-
Portions of this chart may have been created with voice recognition software.� Occasional wrong word or��sound alike� substitutions may have occurred due to the inherent limitations of voice recognition software.
Discharge Plan
Departure
Patient Disposition: Admit
Date of Disposition: 10/07/24
Time of Disposition: 00:43
Presentation/result/management discussed w/ accepting MD/DO: Hospitalist
Discharge Problem:
Intractable abdominal pain
Prescriptions:
No Action
trazodone 100 MG tablet
200 mg PO HS
gabapentin 300 MG capsule
600 mg PO HS
duloxetine [Cymbalta] 60 mg Capsule,Delayed Release(Dr/Ec)
120 mg PO DAILY
cyanocobalamin (vitamin B-12) 1,000 MCG tablet
1,000 mcg PO DAILY
cholecalciferol (vitamin D3) 1,000 UNITS tablet
1,000 units PO DAILY
ondansetron HCl 4 mg Tablet
4 mg PO Q8HPRN PRN (Reason: nausea)
olanzapine 5 mg Tablet
5 mg PO HS
pantoprazole 40 mg Tablet,Delayed Release (Dr/Ec)
40 mg PO BID
buspirone 30 mg Tablet
30 mg PO BID
Belsomra 15 mg Tablet
15 mg PO HS
Nurtec ODT 75 mg Tablet,Disintegrating
75 mg PO Q48H
Referrals:
Venkat Valdez MD [Family Provider, Internal Medicine]
Interventions
Interventions:
*Risk Screen - Suicide Last Done: 10/06/24 15:09
*General Assessment Last Done: 10/06/24 15:09
*Neglect/Abuse Screening Last Done: 10/06/24 15:09
*ED- Fall Risk Assessment Last Done: 10/06/24 18:53
*ED COVID-19 Vaccine History Last Done: 10/07/24 00:13
WD-Pullsg-Rduxwyedvv Assessment Last Done: 10/06/24 18:53
Discharge Date and Time
Print Language: ALGERIAN
[2024-10-06 18:53] VITALS: BP 120/79
[2024-10-06] MEDS: ZOFRAN 4 MG IV (19:02)
[2024-10-06] MEDS: NSS 1000 IV (19:02)
[2024-10-06] MEDS: DILAUDID 1 MG IV (19:02)
[2024-10-06 19:11] LABS: Hematocrit 43.8 % (37.0-47.0); Hemoglobin 14.2 g/dL (12.0-16.0); Mean Corp Hgb Conc. 32.4 g/dL (33.0-37.0); Mean Corpuscular Volume 94.6 fL (81.0-99.0); Nucleated Red Blood Cells % 0 %; Platelet Count 325 10^3/uL (130-400); Red Cell Dist. Width 16.3 % (11.5-14.5)
[2024-10-06 19:30] VITALS: BP 116/80
[2024-10-06 20:00] VITALS: BP 114/79
[2024-10-06 21:41] LABS: ALT (SGPT) 21 U/L (0-35); AST (SGOT) 23 U/L (14-36); Albumin 3.9 g/dl (3.5-5.0); Alkaline Phosphatase 70 U/L (38-126); Blood Urea Nitrogen 14 mg/dl (7-17); Calcium 8.8 mg/dl (8.4-10.2); Carbon Dioxide 24 mmol/L (22-30); Chloride 109 mmol/L (98-107); Estimated Creatinine Clearance 78 ml/min; Glucose 100 mg/dl (70-99); Lipase 144 U/L (23-300); Potassium 4.3 mmol/L (3.5-5.1); Sodium 134 mmol/L (135-145); Total Protein 6.4 g/dl (6.3-8.2); eGFR > 60.00
[2024-10-06 21:45] LABS: Troponin I < 0.012 ng/ml
[2024-10-07] VITALS (11 sets, daily range): BP systolic 93–131; BP diastolic 60–80; BMI 24.8
[2024-10-07] MEDS: DILAUDID 0.5 MG IV ×8 (00:26→22:09)
[2024-10-07] MEDS: ZOFRAN 4 MG IV ×3 (01:37→19:09)
--- NOTE | 2024-10-07 01:40 | HPS.HSE ---
Family Physician
-
Family Physician: Venkat Valdez
Chief Complaint
-
abd pain
History of Present Illness
59yo F with systemic scleroderma, Sjogrens, dysmotily, Hx of multiple abdominal surgeries due to SBO, Hx of ileostomy in 2021 with reversal, chronic pain syndrome, anxiety, cholecystectomy came with worsening of generalized abdominal pain for past
10 days. Was seen in ED 10 days ago with the same. Patient declined recent BM or flatus.
Medical History
Past Medical History
Past Medical History: Reports Other
Additional Past Medical History:
see HPI
Past Surgical History: Reports Other
Additional Past Surgical History:
see HPI
Social History
Tobacco: Non-smoker
Alcohol: None
Drug: None
Family History
Family History: Not pertinent
Allergies / Home Medications
Allergies reflects when Allergies were last updated in [employer].
Home Medications with original date entered in [facility]
Allergy/Medication List:
Allergies
Allergy/AdvReac Type Severity Reaction Status Date / Time
acetaminophen (From Tylenol) Allergy upset Verified 10/06/24 15:12
stomach
Cephalosporins Allergy rash, Verified 10/06/24 15:12
swelling
fentanyl Allergy PATCH-RASH/ Verified 10/06/24 15:12
SWELLING
ketamine Allergy rash,swelli Verified 10/06/24 15:12
ng
ketorolac (From Toradol) Allergy rash,swelli Verified 10/06/24 15:12
ng
levofloxacin (From Levaquin) Allergy rash,swelli Verified 10/06/24 15:12
ng
micafungin Allergy RASH/SWELLI Verified 10/06/24 15:12
NG
morphine Allergy rash,swelli Verified 10/06/24 15:12
ng
NSAIDS (Non-Steroidal Allergy rash,swelli Verified 10/06/24 15:12
Anti-Inflamma ng
Penicillins Allergy rash,swell Verified 10/06/24 15:12
prochlorperazine Allergy Rash Verified 10/06/24 15:12
tramadol Allergy rash,swelli Verified 10/06/24 15:12
ng
Home Medications
cholecalciferol (vitamin D3) 25 mcg (1,000 unit) tablet 1,000 units PO DAILY Supplement 09/13/21
cyanocobalamin (vitamin B-12) 1,000 mcg tablet 1,000 mcg PO DAILY Supplement 09/13/21
duloxetine 60 mg capsule,delayed release (Cymbalta) 120 mg PO DAILY mental health 09/13/21
gabapentin 300 mg capsule 600 mg PO HS Pain 09/13/21
trazodone 100 mg tablet 200 mg PO HS Sleep 09/13/21
buspirone 30 mg tablet 30 mg PO BID Mental Health/Anxiety 06/22/24
olanzapine 5 mg tablet 5 mg PO HS Neurological Condition 06/22/24
ondansetron HCl 4 mg tablet 4 mg PO Q8HPRN PRN nausea 06/22/24
pantoprazole 40 mg tablet,delayed release 40 mg PO BID Gastrointestinal Issue 06/22/24
rimegepant 75 mg disintegrating tablet (Nurtec ODT) 75 mg PO Q48H migraine 06/22/24
suvorexant 15 mg tablet (Belsomra) 15 mg PO HS Sleep 06/22/24
Review of Systems
-
History Source: Patient
A 12 point ROS was completed and negative except as noted: Yes
Abdomen/GI: Reports See HPI
Physical Exam
Vital Signs
Vital Signs
Temp Pulse Resp BP Pulse Ox
98.5 F 67 16 114/79 100
10/06/24 15:08 10/06/24 20:15 10/06/24 22:00 10/06/24 20:00 10/06/24 20:15
Physical Exam
General: Comfortable, Conversant and Pain
HEENT: NormoCephalic, Anicteric and Moist mucous membranes
Respiratory: Clear; No Wheezes or Crackles
Cardiac: S1/S2 and Regular Rhythm; No Murmur
GI: Tender and Distended; No Soft
Genito-urinary: No costovertebral tender
Musculoskeletal: No Clubbing, No Cyanosis and No Edema
Skin: Warm
Neuro: Awake, Alert, Oriented and AO x 3
Psych: Calm
Laboratory Results
-
10/06/24 19:01
10/06/24 21:11
Laboratory Results
Total Bilirubin 0.5 mg/dl (0.2-1.3) 10/06/24 21:11
AST 23 U/L (14-36) 10/06/24 21:11
ALT 21 U/L (0-35) 10/06/24 21:11
Alkaline Phosphatase 70 U/L (38-126) 10/06/24 21:11
Troponin I < 0.012 ng/ml 10/06/24 21:11
Lipase 144 U/L (23-300) 10/06/24 21:11
Data Reviewed
-
Diagnostic Radiology: Report Reviewed by me
Lab Data: Labs Reviewed by me
Impression/Plan
-
A/P:
#possible SBO
clinical picture of SBO, however prelim CT abd with sins of non-specific enteritis
Will attempt NG for decomression
Pain mgmt
Zofran
NPO
IVF
GenSx consult
#Sjogren
#Scleroderma
not on therapy
#Anxiety
#GERD
clamp tube after PO meds for 30min
DVT ppx hep
Full code
I Have spent at least 77min admitting patient
[2024-10-07] MEDS: D5/0.45%NACL 1000 IV ×2 (04:04→15:59)
[2024-10-07] MEDS: DESYREL 100 MG PO (04:05)
[2024-10-07] MEDS: HEPARIN 5000 UNITS SC ×2 (07:50→16:00)
[2024-10-07 08:41] LABS: Hematocrit 38.0 % (37.0-47.0); Hemoglobin 12.3 g/dL (12.0-16.0); Mean Corp Hgb Conc. 32.4 g/dL (33.0-37.0); Mean Corpuscular Volume 94.3 fL (81.0-99.0); Nucleated Red Blood Cells % 0 %; Platelet Count 312 10^3/uL (130-400); Red Cell Dist. Width 16.1 % (11.5-14.5)
[2024-10-07] MEDS: BUSPAR 30 MG PO ×2 (09:04→21:01)
[2024-10-07] MEDS: CYMBALTA DELAYED RELEASE 120 MG PO (09:04)
[2024-10-07] MEDS: MORPHINE SULFATE 2 MG IV (09:11)
[2024-10-07 09:19] LABS: ALT (SGPT) 20 U/L (0-35); AST (SGOT) 24 U/L (14-36); Albumin 3.6 g/dl (3.5-5.0); Alkaline Phosphatase 65 U/L (38-126); Blood Urea Nitrogen 10 mg/dl (7-17); Calcium 8.3 mg/dl (8.4-10.2); Carbon Dioxide 24 mmol/L (22-30); Chloride 110 mmol/L (98-107); Estimated Creatinine Clearance 67 ml/min; Glucose 105 mg/dl (70-99); Potassium 4.3 mmol/L (3.5-5.1); Sodium 136 mmol/L (135-145); Total Protein 6.1 g/dl (6.3-8.2); eGFR > 60.00
--- NOTE | 2024-10-07 10:32 | CM ---
CM following re: discharge planning.
Reviewed pt's chart, met with pt.
Pt is a 59 year old female, admitted with primary dx of DVT/SBO.
Pt reports she lives with in a 2SH townhouse, has 2 supportive children. 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 Pt expressed her desire to return back home with family at discharge.
PCP: Venkat Valdez
[facility]acy: [facility]
D/C plan: home with anticipated no needs. Spouse to transport at discharge.
CM will follow with discharge plan updates as hospitalization progresses
--- NOTE | 2024-10-07 11:30 | W.PN.HOSP.TC ---
Today's Communication/Plan
-
see A/P
Assessment / Plan
Assessment / Plan
HPI: 59 yo F with PMH systemic scleroderma, Sjogrens, dysmotility, Hx of multiple abdominal surgeries due to SBO, Hx of ileostomy in 2021 with reversal, chronic pain syndrome, anxiety, cholecystectomy; p/w worsening of generalized abdominal pain for
past 10 days. Was seen in ED 10 days [facility] with the same. Patient declined recent BM or flatus.
CT AP:
Small sliding hiatal hernia.
Slightly prominent common bile duct, though stable, likely reflecting changes related to prior cholecystectomy and patient age.
No obstructive uropathy.
Previous gastric bypass surgery. Prior subtotal colectomy. Rectosigmoid anastomosis.
Gaseous distention of bowel in the left abdomen, measuring up to 5.3 cm. Similar prior examination. More distal small bowel loops appear relatively collapsed. A distinct transition zone is difficult to identify with certainty. If there is
significant clinical concern for the possibility of small bowel obstruction, consider follow-up small bowel follow-through study.
In the anterior midline mid to lower abdomen, there is a traversing loop of small bowel containing small amount of fluid, with the suggestion of possible mild wall thickening. This could indicate nonspecific enteritis in the proper clinical setting.
No evidence of pneumatosis.
A/P:
# possible SBO
clinical picture of SBO, however CT AP without evidence
NG placed for decompression
GS consulted
Cont pain mgmt, Zofran
NPO with IVF
# Sjogren
# Scleroderma
not on therapy
# Anxiety
# GERD
clamp tube after PO meds for 30min
DVT ppx hep
Full code
Anticipated Discharge: > 48 hours
Subjective/Interval History
-
Date of Service: October 07, 2024
Objective Data
-
Labs:
Laboratory Results
10/07/24
08:22
WBC 7.4
Hgb 12.3
Hct 38.0
Plt Count 312
Sodium 136
Potassium 4.3
Chloride 110 H
Carbon Dioxide 24
BUN 10
Creatinine 0.7
Glucose 105 H
Calcium 8.3 L
Total Bilirubin 0.6
AST 24
ALT 20
Alkaline Phosphatase 65
Vital Signs:
Vital Signs
Temp Pulse Resp BP Pulse Ox
36.6 C 68 18 112/75 98
10/07/24 07:00 10/07/24 07:00 10/07/24 07:00 10/07/24 07:00 10/07/24 10:22
Review of Systems
-
History Source: Patient
Abdomen/GI: Reports Abdominal Pain (improved )
Physical Exam
-
General: Well Developed, No Apparent Distress, Comfortable and Conversant
HEENT: Normocephalic, Atraumatic and Moist Mucous Membranes
Respiratory: Clear to Auscultation and Non Labored Respirations; Negative Accessory Resp Muscle Use
Cardiac: Regular Rhythm and S1/S2
GI: Tender, Distended and Other (decreased bowel sound, NGT )
Rectal: Deferred by Provider
Musculoskeletal: No Clubbing, No Cyanosis and No Edema
Skin: Negative Rash
Neuro: Awake and Alert
Psych: Calm and Intact Judgement/Insight
Data Reviewed
-
CT Scan: Report Reviewed by me
Labs: Labs Reviewed by me
--- NOTE | 2024-10-07 11:31 | CON.GS ---
Addendum entered and electronically signed by Jose Luis Voss MD 10/07/24 13:23:
Patient seen and examined with finance vice president. Agree with documented consultation note with additions and details noted here.
HPI: 59-year-old female known to our surgical service secondary to a history of recurrent SBO as well as likely a component of chronic dysmotility.
Patient has a an extensive past abdominal surgical history including Flor-en-Y gastric bypass, laparotomy with lysis of adhesions and prior small bowel resection. She has also undergone a subtotal colectomy and ileorectal anastomosis. Her most
recent operative procedure was in February 2022 at [facility].
Patient was just seen in the emergency department evaluation on 09/26/2024 secondary to abdominal pain and progressive distention. She was discharged home after CT imaging was read as being negative for any acute obstructive component. Her symptoms
are generally persisted since then but acutely deteriorated over the last 3 days with no flatus, no bowel movements and intermittent nausea/dry heaves and vomiting. This feels worse than her previous obstructive events. She continues to feel
discomfort and abdominal bloating distention tightness this a.m.
Past medical history notable for scleroderma, Sjogren's, Raynaud's, hypothyroidism, anxiety/depression numerous admissions for pSBO. Past abdominal surgical history as outlined above.
AFVSS
NAD but uncomfortable appearing. AAO x 3 and participatory for history taking lying in her hospital bed.
ABD: Distended and tympanitic. Mild generalized tenderness but greatest in the left upper quadrant and left lower quadrant. No rebound rigidity or guarding.
White blood cell count normal but neutrophil shift. Electrolytes generally unremarkable and no acidosis. Lipase normal.
CT abdomen/pelvis imaging reviewed 10/06/2024: Multiple prominent loops of small bowel particularly in the left hemiabdomen. Right hemiabdomen generally decompressed small bowel. Transition point difficult to discern on CT imaging. No radiographic
findings highly suggestive of internal hernia or closed-loop obstruction. No free fluid. No significant bowel thickening. No pneumatosis, no free air.
Assessment/plan: 59-year-old female with probable adhesive small bowel obstruction but no clinical nor radiographic signs suggestive of immediate bowel threat or compromise.
NG tube was already placed overnight, will leave in place although anticipating scant output as patient has previously undergone a Flor-en-Y gastric bypass.
Bowel rest
IV fluid hydration
Supportive care
Follow-up labs tomorrow a.m.
Pending clinical course will need follow-up contrast imaging to further evaluate GI tract.
Will follow
Original Note:
Consultation
-
Date/Time Consultation Requested: 10/07/2024
Date/Time Consultation Performed: 10/07/2024
Requesting Provider: Davy Kaufman
Performing Provider: Jose Luis Voss
Reason for Consultation: Suspected SBO
Medical History
-
Chief Complaint: 59 y/o F presents last night with severe n/v/p.
History of Present Illness:
59 y/o F with PMH of Systemic Schleroderma, Srojens dysmotility, Hx of multiple abdomenal surgeries due to SBO, Hx of ileostomy in 2021, cholecystectomy, chronic pain syndrome, and anxiety, presents with n/v and severe pain last night in her
abdomen. She's states that shes been having this pain for the last 10 days. Patient rates the pain a 10/10. She denies eating anything out of the ordinary, having any BM or flatus.
Past Medical History
Past Medical History: Psychiatric (Chronic pain syndrome, Anxiety) and Other (Systemic sclerosis, Sjogren's dysmotility )
Past Surgical History: Appendectomy, Cholecystectomy and Other (History of SBO, History of Ileostomy 2021. )
Social History
Tobacco: Non-Smoker
Alcohol: None
Drug: None
Personal:
Living: With Family
Family History
Family History: Reviewed & Not Pertinent
Allergies / Home Medications
Allergy/AdvReac Type Severity Reaction Status Date / Time
acetaminophen (From Tylenol) Allergy upset Verified 10/06/24 15:12
stomach
Cephalosporins Allergy rash, Verified 10/06/24 15:12
swelling
fentanyl Allergy PATCH-RASH/ Verified 10/06/24 15:12
SWELLING
ketamine Allergy rash,swelli Verified 10/06/24 15:12
ng
ketorolac (From Toradol) Allergy rash,swelli Verified 10/06/24 15:12
ng
levofloxacin (From Levaquin) Allergy rash,swelli Verified 10/06/24 15:12
ng
micafungin Allergy RASH/SWELLI Verified 10/06/24 15:12
NG
morphine Allergy rash,swelli Verified 10/06/24 15:12
ng
NSAIDS (Non-Steroidal Allergy rash,swelli Verified 10/06/24 15:12
Anti-Inflamma ng
Penicillins Allergy rash,swell Verified 10/06/24 15:12
prochlorperazine Allergy Rash Verified 10/06/24 15:12
tramadol Allergy rash,swelli Verified 10/06/24 15:12
ng
�Medication �Instructions �Recorded �Confirmed �Type
cholecalciferol (vitamin D3) 25 1,000 units PO DAILY Supplement 09/13/21 06/22/24 History
mcg (1,000 unit) tablet
cyanocobalamin (vitamin B-12) 1,000 mcg PO DAILY Supplement 09/13/21 06/22/24 History
1,000 mcg tablet
duloxetine 60 mg capsule,delayed 120 mg PO DAILY mental health 09/13/21 06/22/24 History
release (Cymbalta)
gabapentin 300 mg capsule 600 mg PO HS Pain 09/13/21 06/22/24 History
trazodone 100 mg tablet 200 mg PO HS Sleep 09/13/21 06/22/24 History
buspirone 30 mg tablet 30 mg PO BID Mental Health/Anxiety 06/22/24 06/22/24 History
olanzapine 5 mg tablet 5 mg PO HS Neurological Condition 06/22/24 06/22/24 History
ondansetron HCl 4 mg tablet 4 mg PO Q8HPRN PRN nausea 06/22/24 06/22/24 History
pantoprazole 40 mg tablet,delayed 40 mg PO BID Gastrointestinal Issue 06/22/24 06/22/24 History
release
rimegepant 75 mg disintegrating 75 mg PO Q48H migraine 06/22/24 06/22/24 History
tablet (Nurtec ODT)
suvorexant 15 mg tablet (Belsomra) 15 mg PO HS Sleep 06/22/24 06/22/24 History
Review of Systems
-
History Source: Patient
All other systems: Negative unless noted
Abdomen/GI: Abdominal Pain, Nausea, Vomiting, Constipated and Pain
A 10 point review of systems was completed, and was negative except as per HPI.
Physical Exam
Vital Signs
Temp Pulse Resp BP Pulse Ox
97.9 F 68 18 112/75 98
10/07/24 07:00 10/07/24 07:00 10/07/24 07:00 10/07/24 07:00 10/07/24 10:22
10/06/24 10/07/24 10/08/24
06:59 06:59 06:59
Actual Weight 59.421 kg
Body Mass Index (BMI) 24.8
Lab Results
10/07/24 08:22
10/07/24 08:22
WBC 7.4 10^3/uL (4.8-10.8) 10/07/24 08:22
Hgb 12.3 g/dL (12.0-16.0) 10/07/24 08:22
Hct 38.0 % (37.0-47.0) 10/07/24 08:22
Plt Count 312 10^3/uL (130-400) 10/07/24 08:22
Abs Immat Gran (auto) 0.0 10^3/uL (0-0.05) 10/07/24 08:22
Neutrophils % 78.1 % (42.2-75.2) H 10/07/24 08:22
AFVSS
Labs: Neutrophils elevated, Lymphocytes decreased could indicate sign of infection or inflammation.
Physical Exam
General: Pain and Other (NG Tube)
HEENT: Normocephalic and Anicteric
Breast: Deferred by me
GI: Tender, Distended and Other (Previous surgical scars present)
Neuro: AO x 3
Data Reviewed
-
Radiology: Discussed with Physician
CT Scan: Discussed with Physician
Ultrasound: Discussed with Physician
Labs: Discussed with Physician
Critical Care Time (in minutes): 35
Total Time Spent with Patient (in minutes): 40
Assessment / Plan
-
59 y/o F presented yesterday with n/v and severe abdominal pain. Patient has been given regimented pain medication schedule and was taken for imaging.
CT of Abdomen and Pelvis shows moderate to severe distension on the left side of the colon.
Chest X Ray shows moderate distension as well.
Patient has SBO
Treatment includes conservative management protocol which includes bowel rest and IV fluids.
NPO
Continue NG tube decompression
Fluid resuscitation and electrolyte correction
Will continue nonoperative management over next few days to give bowel a chance to fix itself.
Continue regimented pain medication management
May have to do small bowel follow thru and repeat scans if conservative management doesnt work.
--- NOTE | 2024-10-07 13:26 | PTCARENOTE ---
Pt found walking the halls with NGT disconnected from suction. Pt admitted to disconnecting self, this RN educated pt on need for suction and that she cannot disconnect medical equipment herself. made aware, pt hooked back up to suction.
[2024-10-07] MEDS: NSS (PRESERVATIVE FREE) 10 ML IV ×2 (15:58→21:02)
[2024-10-07] MEDS: PROTONIX IV 40 MG IV ×2 (15:58→21:02)
[2024-10-07] MEDS: NEURONTIN 600 MG PO (21:01)
[2024-10-07] MEDS: ZYPREXA 5 MG PO (21:02)
[2024-10-07] MEDS: DESYREL 200 MG PO (21:02)
[2024-10-07] MEDS: BENADRYL 6.25 MG IV (22:07)
[2024-10-07] MEDS: NON-FORMULARY ITEM 15 MG PO (23:05)
[2024-10-08] MEDS: HEPARIN 5000 UNITS SC ×3 (00:29→16:42)
[2024-10-08] MEDS: DILAUDID 0.5 MG IV ×7 (01:18→19:55)
[2024-10-08] MEDS: D5/0.45%NACL 1000 IV ×2 (03:38→16:42)
[2024-10-08 05:35] VITALS: BMI 24.4
[2024-10-08] MEDS: IMITREX 25 MG PO (06:00)
[2024-10-08 07:00] VITALS: BP 116/76
[2024-10-08 07:24] LABS: Hematocrit 39.4 % (37.0-47.0); Hemoglobin 12.7 g/dL (12.0-16.0); Mean Corp Hgb Conc. 32.2 g/dL (33.0-37.0); Mean Corpuscular Volume 94.7 fL (81.0-99.0); Platelet Count 236 10^3/uL (130-400); Red Cell Dist. Width 16.7 % (11.5-14.5)
[2024-10-08] MEDS: ZOFRAN 4 MG IV (07:36)
[2024-10-08 07:48] LABS: Blood Urea Nitrogen 4 mg/dl (7-17); Calcium 7.8 mg/dl (8.4-10.2); Carbon Dioxide 27 mmol/L (22-30); Chloride 111 mmol/L (98-107); Estimated Creatinine Clearance 78 ml/min; Glucose 99 mg/dl (70-99); Magnesium 2.3 mg/dl (1.6-2.3); Potassium 4.4 mmol/L (3.5-5.1); Sodium 138 mmol/L (135-145); eGFR > 60.00
[2024-10-08] MEDS: BUSPAR 30 MG PO ×2 (07:56→21:08)
[2024-10-08] MEDS: CYMBALTA DELAYED RELEASE 120 MG PO (07:56)
[2024-10-08] MEDS: PROTONIX IV 40 MG IV ×2 (07:57→21:07)
[2024-10-08] MEDS: NSS (PRESERVATIVE FREE) 10 ML IV ×2 (07:57→21:07)
[2024-10-08] MEDS: NON-FORMULARY ITEM 75 MG PO (07:59)
--- NOTE | 2024-10-08 08:06 | W.PN.GS2 ---
Addendum entered and electronically signed by Jose Luis Voss MD 10/08/24 13:54:
Patient seen and examined in follow-up with resident. Agree with documented progress note with additions noted here.
Feels better than at time of admission but still not back to baseline.
Persistent abdominal discomfort and tightness due to bloating/distention.
She has been passing some flatus and had a few loose/semiformed bowel movements
Intermittent nausea but no vomiting. NG tube was removed this a.m.
AFVSS
NAD AAO x 3
ABD: Remains distended and tympanitic. Mild tenderness on palpation but no rebound rigidity or guarding.
Multiple abdominal laparotomy surgical scars.
CT abdomen/pelvis with contrast imaging completed today. Contrast essentially opacifies numerous loops of small bowel all the way through to the ileorectal anastomosis and residual rectum. There is no transition point but there are persistent
significantly dilated small bowel loops likely reflective of underlying chronic dysmotility/stasis or potentially SIBO
Assessment/plan: 59-year-old female with extensive past abdominal surgical history as previously outlined as well as history of scleroderma.
CT imaging today with oral contrast essentially rules out high-grade or complete small bowel obstruction.
Given the persistent degree of small bowel distention but oral contrast opacifying all the way through to the rectum suspect that this is more of a functional obstruction/dysmotility than mechanical process.
Continue supportive care
Clear liquids for comfort today tolerance consider cautious dietary advancement over the next 24 to 36 hours
Patient is scheduled to undergo both upper and lower endoscopy with her GI specialist at [place] next week which would be ideal to continue with as currently scheduled/planned.
Original Note:
Today's Communication / Plan
-
Patient can take small sips of liquid.
Order CT with Contrast of Abdomen/Pelvis
Continue pain management prn
Continue nausea medication prn
Assessment / Plan
-
Continue IV hydration
Patient can take small sips of liquid
Order CT Abdomen/Pelvis with Contrast for better visualization of bowel emptying
Patient has an upper/lower scope planned next week at [place]
Time Spent
Total Time Spent with Patient (in minutes): 25
Subjective Data
-
Date of Service: October 08, 2024
59-year-old female known to our surgical service secondary to a history of recurrent SBO as well as likely a component of chronic dysmotility. Patient has PMH of extensive abdominal surgical history including Flor-en-Y gastric bypass, laparotomy
with lysis of adhesions and prior small bowel resection. She has also undergone a subtotal colectomy and ileorectal anastomosis. She also states that she has scleroderma, Sjogren's, Raynaud's, hypothyroidism, anxiety/depression numerous admissions
for pSBO. Patient was seen in the emergency department evaluation on 09/26/2024 secondary to abdominal pain and progressive distention. She was discharged home after CT imaging was read as being negative for any acute obstructive component. Her
symptoms have generally persisted since then but acutely deteriorated over the last 4 days with no flatus, no bowel movements and intermittent nausea/dry heaves and vomiting. Patient states the she feels better, but still rates her pain an 8/10.
Patients NG tube came out accidentally in the bathroom, and she refused to have it replaced. She denies fever, chills, vomiting. She admits to nausea, diarrhea (3x since last night), and passing gas once. Patient asks if she can advance her diet to
start trial of clears.
Objective Data
-
Intake and Output
10/07/24 10/08/24 10/09/24
06:59 06:59 06:59
Intake Total 1370 / 1370
Output Total 200 / 200
Balance 1170 / 1170
Intake:
Oral fluids 0 / 0
IV fluids (Total) 1250 / 1250
Amount instilled into GI Tube ( 120 / 120
Total)
[place] Sump 120 / 120
Output:
Gastrointestinal tube output ( 200 / 200
Total)
[place] Sump 200 / 200
Other:
Number of approximated MODERATE 5
amounts of urine
Vital Signs
Temp Pulse Resp BP Pulse Ox
97.8 F 73 18 106/70 98
10/07/24 23:03 10/07/24 23:03 10/07/24 23:03 10/07/24 23:03 10/07/24 23:03
Lab Results
10/08/24 06:47
10/08/24 06:47
Calcium 7.8 mg/dl (8.4-10.2) L 10/08/24 06:47
Magnesium 2.3 mg/dl (1.6-2.3) 10/08/24 06:47
Total Bilirubin 0.6 mg/dl (0.2-1.3) 10/07/24 08:22
AST 24 U/L (14-36) 10/07/24 08:22
ALT 20 U/L (0-35) 10/07/24 08:22
Alkaline Phosphatase 65 U/L (38-126) 10/07/24 08:22
Total Protein 6.1 g/dl (6.3-8.2) L 10/07/24 08:22
Albumin 3.6 g/dl (3.5-5.0) 10/07/24 08:22
AFVSS
Labs: WNL
Physical Exam
-
General: NAD
AAAOx3
Chest: No labored breathing
Abdomen: Mild distention. Tenderness to palpation of the abdominal area.
Patient has a cramer catheter: No
Patient has a central line: No
[2024-10-08] MEDS: OMNIPAQUE 50 ML PO (09:15)
--- NOTE | 2024-10-08 09:43 | PTCARENOTE ---
Pt got up and used the bathroom this AM without calling for RN assistance, pt then rang and said she accidentally got her arm stuck and ripped out NGT. MD made aware, ok to keep out NGT at this time. Oral contrast started at lower volume per MD
order. No new orders at this time.
--- NOTE | 2024-10-08 10:48 | W.PN.HOSP.TC ---
Today's Communication/Plan
-
see A/P
Assessment / Plan
Assessment / Plan
HPI: 59 yo F with PMH systemic scleroderma, Sjogrens, dysmotility, Hx of multiple abdominal surgeries due to SBO, Hx of ileostomy in 2021 with reversal, chronic pain syndrome, anxiety, cholecystectomy; p/w worsening of generalized abdominal pain for
past 10 days. Was seen in ED 10 days [employer] with the same. Patient declined recent BM or flatus.
CT AP:
Small sliding hiatal hernia.
Slightly prominent common bile duct, though stable, likely reflecting changes related to prior cholecystectomy and patient age.
No obstructive uropathy.
Previous gastric bypass surgery. Prior subtotal colectomy. Rectosigmoid anastomosis.
Gaseous distention of bowel in the left abdomen, measuring up to 5.3 cm. Similar prior examination. More distal small bowel loops appear relatively collapsed. A distinct transition zone is difficult to identify with certainty. If there is
significant clinical concern for the possibility of small bowel obstruction, consider follow-up small bowel follow-through study.
In the anterior midline mid to lower abdomen, there is a traversing loop of small bowel containing small amount of fluid, with the suggestion of possible mild wall thickening. This could indicate nonspecific enteritis in the proper clinical setting.
No evidence of pneumatosis.
A/P:
# possible SBO
clinical picture of SBO, however CT AP without evidence
NGT placed for decompression, NGT fell out
Check repeat CT AP 10/08 per GS
GS on board
Cont pain mgmt, Zofran
NPO with IVF
# Sjogren
# Scleroderma
not on therapy
# Anxiety
# GERD
clamp tube after PO meds for 30min
DVT ppx hep
Full code
Anticipated Discharge: > 48 hours
Subjective/Interval History
-
Date of Service: October 08, 2024
Objective Data
-
Labs:
Laboratory Results
10/08/24
06:47
WBC 5.8
Hgb 12.7
Hct 39.4
Plt Count 236 D
Sodium 138
Potassium 4.4
Chloride 111 H
Carbon Dioxide 27
BUN 4 L
Creatinine 0.6
Glucose 99
Calcium 7.8 L
Vital Signs:
Vital Signs
Temp Pulse Resp BP Pulse Ox
36.8 C 74 18 116/76 99
10/08/24 07:00 10/08/24 07:00 10/08/24 07:00 10/08/24 07:00 10/08/24 07:00
I&O
10/07/24 10/08/24 10/09/24
06:59 06:59 06:59
Intake Total 1370 / 1370
Output Total 200 / 200
Balance 1170 / 1170
Review of Systems
-
History Source: Patient
Abdomen/GI: Reports Abdominal Pain and Nausea
Physical Exam
-
General: Well Developed, No Apparent Distress and Conversant
HEENT: Normocephalic, Atraumatic and Moist Mucous Membranes
Respiratory: Clear to Auscultation and Non Labored Respirations; Negative Accessory Resp Muscle Use
Cardiac: Regular Rhythm and S1/S2
GI: Tender, Distended and Other (decreased bowel sound, NGT fell out )
Rectal: Deferred by Provider
Musculoskeletal: No Clubbing, No Cyanosis and No Edema
Skin: Negative Rash
Neuro: Awake and Alert
Psych: Calm and Intact Judgement/Insight
Data Reviewed
-
CT Scan: Report Reviewed by me
Labs: Labs Reviewed by me
--- NOTE | 2024-10-08 11:55 | CM ---
CM following re: discharge planning.
Reviewed pt's chart, met with pt.
Pt lives with in a 2SH townhouse, has 2 supportive children and pt is s independent in all areas [employer].
D/C plan: home with anticipated no needs. Spouse to transport at discharge.
CM will follow with discharge plan updates as hospitalization progresses
[2024-10-08 15:08] VITALS: BP 120/70
[2024-10-08] MEDS: NEURONTIN 600 MG PO (21:07)
[2024-10-08] MEDS: ZYPREXA 5 MG PO (21:08)
[2024-10-08] MEDS: NON-FORMULARY ITEM 15 MG PO (21:08)
[2024-10-08] MEDS: DESYREL 200 MG PO (21:08)
[2024-10-08 22:28] VITALS: BP 115/70
[2024-10-08 23:31] VITALS: BP 115/70
[2024-10-09] MEDS: HEPARIN 5000 UNITS SC ×3 (00:32→17:41)
[2024-10-09] MEDS: DILAUDID 0.5 MG IV ×7 (00:32→20:43)
[2024-10-09] MEDS: ZOFRAN 4 MG IV (05:10)
[2024-10-09] MEDS: D5/0.45%NACL IV (05:13)
[2024-10-09] MEDS: D5/0.45%NACL 1000 IV (06:28)
[2024-10-09 07:05] VITALS: BP 124/78
[2024-10-09 08:09] LABS: Hematocrit 41.4 % (37.0-47.0); Hemoglobin 13.4 g/dL (12.0-16.0); Mean Corp Hgb Conc. 32.4 g/dL (33.0-37.0); Mean Corpuscular Volume 95.0 fL (81.0-99.0); Platelet Count 253 10^3/uL (130-400); Red Cell Dist. Width 16.6 % (11.5-14.5)
[2024-10-09] MEDS: NSS (PRESERVATIVE FREE) 10 ML IV ×2 (08:16→22:09)
[2024-10-09] MEDS: BUSPAR 30 MG PO ×2 (08:16→22:08)
[2024-10-09] MEDS: CYMBALTA DELAYED RELEASE 120 MG PO (08:16)
[2024-10-09] MEDS: PROTONIX IV 40 MG IV ×2 (08:17→22:08)
[2024-10-09 08:42] LABS: Blood Urea Nitrogen < 2 mg/dl (7-17); Calcium 8.2 mg/dl (8.4-10.2); Carbon Dioxide 23 mmol/L (22-30); Chloride 110 mmol/L (98-107); Estimated Creatinine Clearance 78 ml/min; Glucose 98 mg/dl (70-99); Potassium 4.2 mmol/L (3.5-5.1); Sodium 138 mmol/L (135-145); eGFR > 60.00
--- NOTE | 2024-10-09 11:17 | W.PN.GS2 ---
Today's Communication / Plan
-
full liquids
Assessment / Plan
-
59-year-old female known to our surgical service secondary to a history of recurrent SBO as well as likely a component of chronic dysmotility. Patient has a an extensive past abdominal surgical history including Flor-en-Y gastric bypass, laparotomy
with lysis of adhesions and prior small bowel resection. She has also undergone a subtotal colectomy and ileorectal anastomosis. Her most recent operative procedure was in February 2022 at [facility].
AFVSS
Pain and distention persists, notes nausea improved
Tolerating clears
CT imaging on 10/09/24 essentially rules out high-grade or complete small bowel obstruction. Given the persistent degree of small bowel distention but oral contrast opacifying all the way through to the rectum suspect that this is more of a
functional obstruction/dysmotility than mechanical process.
Plan:
Full liquids, given ongoing distention/pain would not progress to solid foods as of yet
Analgesics/antiemetics prn
Medical management as per primary team
F/U scheduled at [facility] for EGD/Sigmoidoscopy early next week, would ideally continue with as currently scheduled/planned.
Subjective Data
-
Date of Service: October 09, 2024
Pt seen and examined at bedside with Dr Buenrostro. Denies active nausea. Passing some gas. Having some loose stools. Still with distention and significant abdominal pain. Eager to have solid food.
Objective Data
-
Intake and Output
10/08/24 10/09/24 10/10/24
06:59 06:59 06:59
Intake Total 1370 / 1370 2800 / 2800
Output Total 200 / 200
Balance 1170 / 1170 2800 / 2800
Intake:
Oral fluids 0 / 0 350 / 350
IV fluids (Total) 1250 / 1250 2450 / 2450
Amount instilled into GI Tube ( 120 / 120
Total)
[place] Sump 120 / 120
Output:
Gastrointestinal tube output ( 200 / 200
Total)
[place] Sump 200 / 200
Other:
Number of approximated MODERATE 5 3
amounts of urine
Vital Signs
Temp Pulse Resp BP Pulse Ox
97.4 F 75 16 124/78 100
10/09/24 07:05 10/09/24 07:05 10/09/24 07:05 10/09/24 07:05 10/09/24 07:05
Lab Results
10/09/24 07:39
10/09/24 07:39
Calcium 8.2 mg/dl (8.4-10.2) L 10/09/24 07:39
Magnesium 2.3 mg/dl (1.6-2.3) 10/08/24 06:47
Total Bilirubin 0.6 mg/dl (0.2-1.3) 10/07/24 08:22
AST 24 U/L (14-36) 10/07/24 08:22
ALT 20 U/L (0-35) 10/07/24 08:22
Alkaline Phosphatase 65 U/L (38-126) 10/07/24 08:22
Total Protein 6.1 g/dl (6.3-8.2) L 10/07/24 08:22
Albumin 3.6 g/dl (3.5-5.0) 10/07/24 08:22
Physical Exam
-
NAD
ABD soft, distended, generalized tenderness R>L
--- NOTE | 2024-10-09 14:09 | W.PN.HOSP.TC ---
Today's Communication/Plan
-
make diet lactose free.
Assessment / Plan
Assessment / Plan
HPI: 59 yo F with PMH systemic scleroderma, Sjogrens, dysmotility, Hx of multiple abdominal surgeries due to SBO, Hx of ileostomy in 2021 with reversal, chronic pain syndrome, anxiety, cholecystectomy; p/w worsening of generalized abdominal pain for
past 10 days. 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 Patient declined recent BM or flatus.
CT AP 10/06:
Small sliding hiatal hernia.
Slightly prominent common bile duct, though stable, likely reflecting changes related to prior cholecystectomy and patient age.
No obstructive uropathy.
Previous gastric bypass surgery. Prior subtotal colectomy. Rectosigmoid anastomosis.
Gaseous distention of bowel in the left abdomen, measuring up to 5.3 cm. Similar prior examination. More distal small bowel loops appear relatively collapsed.
A distinct transition zone is difficult to identify with certainty. If there is significant clinical concern for the possibility of small bowel obstruction, consider follow-up small bowel follow-through study.
In the anterior midline mid to lower abdomen, there is a traversing loop of small bowel containing small amount of fluid, with the suggestion of possible mild wall thickening.
This could indicate nonspecific enteritis in the proper clinical setting.
No evidence of pneumatosis.
CT 10/08:
1. Subtotal colectomy with an ileorectal anastomosis which appears unchanged.
Severe air distention of small bowel loops in the left upper quadrant which appears unchanged.
2. Mild to moderate circumferential wall thickening in the rectum consistent with a chronic proctitis which appears similar to the prior CT examinations.
3. Previous gastric bypass surgery with a gastrojejunal anastomosis.
4. Small sliding-type hiatal hernia.
5. Mild intrahepatic and extrahepatic biliary dilatation.
6. 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
7. Pessary in the pelvis.
8. Severe chronic discogenic degenerative disease at L4/L5 with osseous fusion across the intervertebral disc.
9. Moderate to severe bilateral facet joint arthrosis at L3/L4.
10. Right-sided InterStim device in place.
A/P:
1. possible SBO - had full liquid today
clinical picture of SBO, however CT AP without evidence
NGT placed for decompression, NGT fell out
See repeat CT AP 10/08 per GS
GS on board
Cont pain mgmt, Zofran
Diet advancement per surgery
2. Sjogren
Complicated by Scleroderma
not on therapy
outpatient follow up
3. Anxiety - chronic but in control at the moment
4. GERD - consider ppi
DVT ppx hep
Full code
Anticipated Discharge: 24 - 48 hours
Subjective/Interval History
-
Date of Service: October 09, 2024
Had some abd pain with full liquids.
Objective Data
-
Labs:
Laboratory Results
10/09/24
07:39
WBC 7.3
Hgb 13.4
Hct 41.4
Plt Count 253
Sodium 138
Potassium 4.2
Chloride 110 H
Carbon Dioxide 23
BUN < 2 L
Creatinine 0.6
Glucose 98
Calcium 8.2 L
Vital Signs:
Vital Signs
Temp Pulse Resp BP Pulse Ox
97.4 F 75 16 124/78 100
10/09/24 07:05 10/09/24 07:05 10/09/24 07:05 10/09/24 07:05 10/09/24 07:05
I&O
10/08/24 10/09/24 10/10/24
06:59 06:59 06:59
Intake Total 1370 / 1370 2800 / 2800
Output Total 200 / 200
Balance 1170 / 1170 2800 / 2800
Review of Systems
-
History Source: Patient
All other systems: Reviewed and negative
Abdomen/GI: Reports Abdominal Pain and Diarrhea
Physical Exam
-
General: Well Developed, Well Nourished, No Apparent Distress and Comfortable
HEENT: Normocephalic, Moist Mucous Membranes, Nose Appears Normal and Ears Appear Normal
Respiratory: Clear to Auscultation
Cardiac: Regular Rhythm and S1/S2
GI: Soft, Nontender and Nondistended
Musculoskeletal: No Clubbing, No Cyanosis and No Edema
Skin: Warm and Dry
Neuro: Awake, Alert, Oriented and AO x 3
Psych: Calm
Data Reviewed
-
Labs: Labs Reviewed by me
[2024-10-09 15:15] VITALS: BP 109/67
[2024-10-09] MEDS: DESYREL 200 MG PO (22:08)
[2024-10-09] MEDS: NON-FORMULARY ITEM 15 MG PO (22:08)
[2024-10-09] MEDS: NEURONTIN 600 MG PO (22:08)
[2024-10-09] MEDS: ZYPREXA 5 MG PO (22:08)
[2024-10-09 23:04] VITALS: BP 116/71
[2024-10-10] MEDS: DILAUDID 0.5 MG IV ×8 (00:44→22:11)
[2024-10-10] MEDS: HEPARIN 5000 UNITS SC ×4 (00:44→23:25)
[2024-10-10] MEDS: CYMBALTA DELAYED RELEASE 120 MG PO (07:31)
[2024-10-10 07:32] VITALS: BP 115/76
[2024-10-10] MEDS: BUSPAR 30 MG PO ×2 (07:32→20:50)
[2024-10-10] MEDS: PROTONIX IV 40 MG IV ×2 (07:33→20:51)
[2024-10-10] MEDS: NSS (PRESERVATIVE FREE) 10 ML IV ×2 (07:33→20:50)
[2024-10-10] MEDS: NON-FORMULARY ITEM 75 MG PO (07:33)
[2024-10-10 08:05] LABS: Hematocrit 42.2 % (37.0-47.0); Hemoglobin 13.4 g/dL (12.0-16.0); Mean Corp Hgb Conc. 31.8 g/dL (33.0-37.0); Mean Corpuscular Volume 95.9 fL (81.0-99.0); Platelet Count 306 10^3/uL (130-400); Red Cell Dist. Width 16.6 % (11.5-14.5)
--- NOTE | 2024-10-10 10:20 | W.PN.GS2 ---
Today's Communication / Plan
-
low residue diet
dispo planning
Assessment / Plan
-
59-year-old female known to our surgical service secondary to a history of recurrent SBO as well as likely a component of chronic dysmotility. Patient has a an extensive past abdominal surgical history including Flor-en-Y gastric bypass, laparotomy
with lysis of adhesions and prior small bowel resection. She has also undergone a subtotal colectomy and ileorectal anastomosis. Her most recent operative procedure was in February 2022 at [facility].
CT imaging on 10/09/24 essentially rules out high-grade or complete small bowel obstruction. Given the persistent degree of small bowel distention but oral contrast opacifying all the way through to the rectum suspect that this is more of a
functional obstruction/dysmotility than mechanical process.
AFVSS
Symtpoms continue to improve, passing stools/gas
Tolerating fulls
Plan:
Low residue diet
Analgesics/antiemetics prn
Medical management as per primary team
F/U scheduled at [facility] for EGD/Sigmoidoscopy on Friday, would ideally continue with as currently scheduled/planned.
Pt eager to go home, may be able to be discharged this afternoon if tolerating diet to continue OP GI follow up
Subjective Data
-
Date of Service: October 10, 2024
Pt seen and examined at bedside with Dr. Buenrostro. Denies vomiting, mild intermittent nausea not associated with meals. Passing flatus and stools. Pain improved.
Objective Data
-
Intake and Output
10/09/24 10/10/24 10/11/24
06:59 06:59 06:59
Intake Total 2800 / 2800 1560 / 1560
Balance 2800 / 2800 1560 / 1560
Intake:
Oral fluids 350 / 350 1560 / 1560
IV fluids (Total) 2450 / 2450
Other:
Number of approximated MODERATE 3 2
amounts of urine
Vital Signs
Temp Pulse Resp BP Pulse Ox
98.3 F 72 16 115/76 100
10/10/24 07:32 10/10/24 07:32 10/10/24 07:32 10/10/24 07:32 10/10/24 07:32
Lab Results
10/10/24 07:28
Calcium Cancelled 10/10/24 07:28
Magnesium 2.3 mg/dl (1.6-2.3) 10/08/24 06:47
Total Bilirubin 0.6 mg/dl (0.2-1.3) 10/07/24 08:22
AST 24 U/L (14-36) 10/07/24 08:22
ALT 20 U/L (0-35) 10/07/24 08:22
Alkaline Phosphatase 65 U/L (38-126) 10/07/24 08:22
Total Protein 6.1 g/dl (6.3-8.2) L 10/07/24 08:22
Albumin 3.6 g/dl (3.5-5.0) 10/07/24 08:22
Physical Exam
-
NAD
ABD soft, mildly distended (improved), minimal to no tenderness
[2024-10-10 11:01] LABS: Blood Urea Nitrogen 5 mg/dl (7-17); Calcium 9.2 mg/dl (8.4-10.2); Carbon Dioxide 24 mmol/L (22-30); Chloride 109 mmol/L (98-107); Estimated Creatinine Clearance 67 ml/min; Glucose 49 mg/dl (70-99); Potassium 4.3 mmol/L (3.5-5.1); Sodium 137 mmol/L (135-145); eGFR > 60.00
[2024-10-10 11:05] LABS: Glucose - Point of Care 82 mg/dl (70-99)
[2024-10-10] MEDS: ZOFRAN 4 MG IV (13:05)
--- NOTE | 2024-10-10 13:12 | W.PN.HOSP.TC ---
Today's Communication/Plan
-
Continue low residue diet.
Assessment / Plan
Assessment / Plan
HPI: 59 yo F with PMH systemic scleroderma, Sjogrens, dysmotility, Hx of multiple abdominal surgeries due to SBO, Hx of ileostomy in 2021 with reversal, chronic pain syndrome, anxiety, cholecystectomy; p/w worsening of generalized abdominal pain for
past 10 days. 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 Patient declined recent BM or flatus.
CT AP 10/06:
Small sliding hiatal hernia.
Slightly prominent common bile duct, though stable, likely reflecting changes related to prior cholecystectomy and patient age.
No obstructive uropathy.
Previous gastric bypass surgery. Prior subtotal colectomy. Rectosigmoid anastomosis.
Gaseous distention of bowel in the left abdomen, measuring up to 5.3 cm. Similar prior examination. More distal small bowel loops appear relatively collapsed.
A distinct transition zone is difficult to identify with certainty. If there is significant clinical concern for the possibility of small bowel obstruction, consider follow-up small bowel follow-through study.
In the anterior midline mid to lower abdomen, there is a traversing loop of small bowel containing small amount of fluid, with the suggestion of possible mild wall thickening.
This could indicate nonspecific enteritis in the proper clinical setting.
No evidence of pneumatosis.
CT 10/08:
1. Subtotal colectomy with an ileorectal anastomosis which appears unchanged.
Severe air distention of small bowel loops in the left upper quadrant which appears unchanged.
2. Mild to moderate circumferential wall thickening in the rectum consistent with a chronic proctitis which appears similar to the prior CT examinations.
3. Previous gastric bypass surgery with a gastrojejunal anastomosis.
4. Small sliding-type hiatal hernia.
5. Mild intrahepatic and extrahepatic biliary dilatation.
6. 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
7. Pessary in the pelvis.
8. Severe chronic discogenic degenerative disease at L4/L5 with osseous fusion across the intervertebral disc.
9. Moderate to severe bilateral facet joint arthrosis at L3/L4.
10. Right-sided InterStim device in place.
A/P:
1. possible SBO - had low residue diet today - but had 8/10 pain with it
clinical picture of SBO, however CT AP without evidence
NGT placed for decompression, NGT fell out
See repeat CT AP 10/08 per GS
GS on board
Cont pain mgmt, Zofran
Diet advancement per surgery - if pain improves, hopefully home tomorrow
2. Sjogren
Complicated by Scleroderma
not on therapy
outpatient follow up
3. Anxiety - chronic but in control at the moment
4. GERD - consider ppi
DVT ppx hep
Full code
Anticipated Discharge: Within 24 hours
Subjective/Interval History
-
Date of Service: October 10, 2024
eating a low residue diet, but having intermittent 8/10 pain.
Objective Data
-
Labs:
Laboratory Results
10/10/24 10/10/24
07:28 10:25
WBC 6.0
Hgb 13.4
Hct 42.2
Plt Count 306 D
Sodium Cancelled 137
Potassium Cancelled 4.3
Chloride Cancelled 109 H
Carbon Dioxide Cancelled 24
BUN Cancelled 5 L
Creatinine Cancelled 0.7
Glucose Cancelled 49 L*
Calcium Cancelled 9.2
Vital Signs:
Vital Signs
Temp Pulse Resp BP Pulse Ox
98.3 F 72 16 115/76 100
10/10/24 07:32 10/10/24 07:32 10/10/24 07:32 10/10/24 07:32 10/10/24 07:32
I&O
10/09/24 10/10/24 10/11/24
06:59 06:59 06:59
Intake Total 2800 / 2800 1560 / 1560
Balance 2800 / 2800 1560 / 1560
Review of Systems
-
History Source: Patient
All other systems: Reviewed and negative
Abdomen/GI: Reports Pain
Physical Exam
-
General: Well Developed, Well Nourished, No Apparent Distress and Comfortable
HEENT: Normocephalic, Atraumatic, Moist Mucous Membranes, Nose Appears Normal and Ears Appear Normal
Respiratory: Clear to Auscultation
Cardiac: Regular Rhythm and S1/S2
GI: Soft and Tender
Musculoskeletal: No Clubbing, No Cyanosis and No Edema
Skin: Warm and Dry
Neuro: Awake, Alert, Oriented and AO x 3
Psych: Calm
Data Reviewed
-
Labs: Labs Reviewed by me
[2024-10-10 16:21] VITALS: BP 106/70
[2024-10-10] MEDS: DESYREL 200 MG PO (22:10)
[2024-10-10] MEDS: NEURONTIN 600 MG PO (22:10)
[2024-10-10] MEDS: ZYPREXA 5 MG PO (22:10)
[2024-10-10] MEDS: NON-FORMULARY ITEM 15 MG PO (22:11)
[2024-10-10 23:04] VITALS: BP 100/64
[2024-10-11] MEDS: DILAUDID 0.5 MG IV ×4 (01:22→10:41)
[2024-10-11 07:10] VITALS: BP 114/68
[2024-10-11 07:11] LABS: Hematocrit 44.8 % (37.0-47.0); Hemoglobin 14.2 g/dL (12.0-16.0); Mean Corp Hgb Conc. 31.7 g/dL (33.0-37.0); Mean Corpuscular Volume 96.8 fL (81.0-99.0); Platelet Count 341 10^3/uL (130-400); Red Cell Dist. Width 16.4 % (11.5-14.5)
[2024-10-11] MEDS: NSS (PRESERVATIVE FREE) 10 ML IV (07:24)
[2024-10-11] MEDS: PROTONIX IV 40 MG IV (07:25)
[2024-10-11] MEDS: BUSPAR 30 MG PO (07:26)
[2024-10-11] MEDS: CYMBALTA DELAYED RELEASE 120 MG PO (07:26)
[2024-10-11] MEDS: HEPARIN 5000 UNITS SC (07:26)
--- NOTE | 2024-10-11 07:28 | W.PN.GS2 ---
Addendum entered and electronically signed by Fredrick Novak MD 10/11/24 11:52:
I saw and examined the patient independently.
The resident's documentation was reviewed and I agree with the note, assessment and plan except where noted below.
Comment: 59-year-old female with a significant abdominal surgical history, gastric bypass anatomy subtotal colectomy who presents with recurrent small bowel obstruction, likely multifactorial adhesive as well as intrinsic secondary to scleroderma
with known chronic dysmotility. Overall she feels much improved, she is tolerating a low residue diet and her pain is fairly well-controlled. She also has follow-up with her treating physicians at [place] tomorrow.
No acute surgical intervention warranted at this time.
Dispo per primary
Would send home with a small prescription of oxycodone 5 mg every 6 hours as needed x 3 days
Patient agreeable to plan of care above.
Original Note:
Today's Communication / Plan
-
Continue LRD diet
Surgery team signing off/ recommend d/c for patient.
Recommend prescription for few days of pain medication (oxycodone)
Medical management as per primary team
Assessment / Plan
-
59-year-old female known to our surgical service secondary to a history of recurrent SBO as well as likely a component of chronic dysmotility. Patient has a an extensive past abdominal surgical history including Flor-en-Y gastric bypass, laparotomy
with lysis of adhesions and prior small bowel resection. She has also undergone a subtotal colectomy and ileorectal anastomosis. Her most recent operative procedure was in February 2022 at [facility]. She presented on 10/06
for worsening abdominal pain that persisted for 10 days prior. Patient was put on conservative medical management. Patient has been improving, passing gas, having BM and tolerating her LRD. She states that she is ready to be discharged.
Plan:
Continue Low residue diet
Prescribe a few days worth of oral pain medication
Medical management as per primary team
F/U scheduled at [facility] for EGD/Sigmoidoscopy on Friday, would ideally continue with as currently scheduled/planned
Patient may be discharged as early as this afternoon
Continue OP GI follow up
Time Spent
Total Time Spent with Patient (in minutes): 30
Subjective Data
-
Date of Service: October 11, 2024
59-year-old female known to our surgical service secondary to a history of recurrent SBO as well as likely a component of chronic dysmotility. Patient has a an extensive past abdominal surgical history including Flor-en-Y gastric bypass, laparotomy
with lysis of adhesions and prior small bowel resection. She has also undergone a subtotal colectomy and ileorectal anastomosis. Her most recent operative procedure was in February 2022 at [facility]. Patient presented
for abdominal pain that she thought was another SBO. Patient has been put on conservative management for her symptoms. She states that her symptoms are improving. Patient is tolerating LRD well. She states that she has had some nausea, no vomiting,
4 BM and 2 episodes of gas since yesterday. She rates her pain an 8/10 and reminds the nurse that her pain medications need to be refilled soon. Patient states that she is ready to be discharged because shes doing better and she doesnt want to miss
her doctors appointment tomorrow at [facility] for EGD/sigmoidoscopy.
Objective Data
-
Intake and Output
10/10/24 10/11/24 10/12/24
06:59 06:59 06:59
Intake Total 1560 / 1560 960 / 960
Balance 1560 / 1560 960 / 960
Intake:
Oral fluids 1560 / 1560 960 / 960
Other:
Number of approximated MODERATE 2 2
amounts of urine
Vital Signs
Temp Pulse Resp BP Pulse Ox
98.2 F 72 18 100/64 100
10/10/24 23:04 10/10/24 23:04 10/10/24 23:04 10/10/24 23:04 10/10/24 23:04
Lab Results
10/11/24 06:56
Calcium 9.2 mg/dl (8.4-10.2) 10/10/24 10:25
Magnesium 2.3 mg/dl (1.6-2.3) 10/08/24 06:47
Total Bilirubin 0.6 mg/dl (0.2-1.3) 10/07/24 08:22
AST 24 U/L (14-36) 10/07/24 08:22
ALT 20 U/L (0-35) 10/07/24 08:22
Alkaline Phosphatase 65 U/L (38-126) 10/07/24 08:22
Total Protein 6.1 g/dl (6.3-8.2) L 10/07/24 08:22
Albumin 3.6 g/dl (3.5-5.0) 10/07/24 08:22
AFVSS
Labs: WNL
CT imaging on 10/09/24 essentially rules out high-grade or complete small bowel obstruction. Given the persistent degree of small bowel distention but oral contrast opacifying all the way through to the rectum suspect that this is more of a
functional obstruction/dysmotility than mechanical process.
Physical Exam
-
General: NAD
AAAOx3
Chest: No Labored Breathing
Abdomen: Mild distension. Mild ttp on RLQ.
Patient has a cramer catheter: No
Patient has a central line: No
[2024-10-11 07:45] LABS: Blood Urea Nitrogen 9 mg/dl (7-17); Calcium 8.8 mg/dl (8.4-10.2); Carbon Dioxide 24 mmol/L (22-30); Chloride 109 mmol/L (98-107); Estimated Creatinine Clearance 59 ml/min; Glucose 84 mg/dl (70-99); Potassium 4.7 mmol/L (3.5-5.1); Sodium 137 mmol/L (135-145); eGFR > 60.00
[2024-10-11 08:57] LABS: Magnesium 2.3 mg/dl (1.6-2.3)
--- NOTE | 2024-10-11 11:14 | W.PN.HOSP.TC ---
Addendum entered and electronically signed by Isael Alvarado MD 10/11/24 13:59:
Correction: filled buprenorphine/naloxone
Addendum entered and electronically signed by Isael Alvarado MD 10/11/24 13:41:
Discussed with surgery. Patient has recently failed buprenorphine/naloxone. Will not prescribe any further opioids. Discharge home today
Time of discharge 38 minutes
Original Note:
Today's Communication/Plan
-
monitor vitals
see plan
pain management
likely dc today
Assessment / Plan
Assessment / Plan
HPI: 59 yo F with PMH systemic scleroderma, Sjogrens, dysmotility, Hx of multiple abdominal surgeries due to SBO, Hx of ileostomy in 2021 with reversal, chronic pain syndrome, anxiety, cholecystectomy; p/w worsening of generalized abdominal pain for
past 10 days. 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 Patient declined recent BM or flatus.
CT AP 10/06:
Small sliding hiatal hernia.
Slightly prominent common bile duct, though stable, likely reflecting changes related to prior cholecystectomy and patient age.
No obstructive uropathy.
Previous gastric bypass surgery. Prior subtotal colectomy. Rectosigmoid anastomosis.
Gaseous distention of bowel in the left abdomen, measuring up to 5.3 cm. Similar prior examination. More distal small bowel loops appear relatively collapsed.
A distinct transition zone is difficult to identify with certainty. If there is significant clinical concern for the possibility of small bowel obstruction, consider follow-up small bowel follow-through study.
In the anterior midline mid to lower abdomen, there is a traversing loop of small bowel containing small amount of fluid, with the suggestion of possible mild wall thickening.
This could indicate nonspecific enteritis in the proper clinical setting.
No evidence of pneumatosis.
CT 10/08:
1. Subtotal colectomy with an ileorectal anastomosis which appears unchanged.
Severe air distention of small bowel loops in the left upper quadrant which appears unchanged.
2. Mild to moderate circumferential wall thickening in the rectum consistent with a chronic proctitis which appears similar to the prior CT examinations.
3. Previous gastric bypass surgery with a gastrojejunal anastomosis.
4. Small sliding-type hiatal hernia.
5. Mild intrahepatic and extrahepatic biliary dilatation.
6. 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
7. Pessary in the pelvis.
8. Severe chronic discogenic degenerative disease at L4/L5 with osseous fusion across the intervertebral disc.
9. Moderate to severe bilateral facet joint arthrosis at L3/L4.
10. Right-sided InterStim device in place.
A/P:
possible SBO - had low residue diet today - but had 8/ pain with it
clinical picture of SBO, however CT AP without evidence
NGT placed for decompression, NGT fell out
See repeat CT AP 10/08 per GS
Chronic bronchitis
GS on board
Cont pain mgmt, Zofran
Tolerating low residue diet, some intermittent pain. Discussed with surgery and they want patient to be discharged. Patient is scheduled for EGD/sigmoidoscopy tomorrow.
Sjogren
Complicated by Scleroderma
not on therapy
outpatient follow up
Anxiety - chronic but in control at the moment
GERD - consider ppi
DVT ppx hep
Full code
General: Well Developed, Well Nourished, No Apparent Distress and Comfortable
HEENT: Normocephalic, Atraumatic, Moist Mucous Membranes, Nose Appears Normal and Ears Appear Normal
Respiratory: Clear to Auscultation
Cardiac: Regular Rhythm and S1/S2
GI: Soft and Tender
Musculoskeletal: No Clubbing, No Cyanosis and No Edema
Skin: Warm and Dry
Neuro: Awake, Alert, Oriented and AO x 3
Psych: Calm
Anticipated Discharge: Today
Subjective/Interval History
-
Date of Service: October 11, 2024
Has intermittent pain
Objective Data
-
Labs:
Laboratory Results
10/11/24
06:56
WBC 7.6
Hgb 14.2
Hct 44.8
Plt Count 341
Sodium 137
Potassium 4.7
Chloride 109 H
Carbon Dioxide 24
BUN 9
Creatinine 0.8
Glucose 84
Calcium 8.8
Vital Signs:
Vital Signs
Temp Pulse Resp BP Pulse Ox
98.0 F 76 18 114/68 99
10/11/24 07:10 10/11/24 07:10 10/11/24 07:10 10/11/24 07:10 10/11/24 07:10
I&O
10/10/24 10/11/24 10/12/24
06:59 06:59 06:59
Intake Total 1560 / 1560 960 / 960
Balance 1560 / 1560 960 / 960
--- NOTE | 2024-10-11 13:48 | W.DCSUMMARY ---
Discharge Summary
Discharge Data
Date of Admission: 10/07/24
Date of Discharge: 10/11/24
-
Pending Results: No
Hospital Course
59-year-old female with past medical history of systemic scleroderma, Sjogren's, dysmotility, history of multiple abdominal surgeries due to SBO, history of ileostomy reversal, chronic pain syndrome, anxiety, cholecystectomy came to the hospital for
worsening generalized abdominal pain. Patient was seen by surgery for concern for possible small bowel obstruction. Patient had 2 CT scan of the abdomen and they both were negative for high-grade or complete small bowel obstruction. Patient
symptoms appear to be secondary to possible functional obstruction/dysmotility rather than a mechanical process. Surgery recommended patient to follow-up with GI tomorrow at [facility] for EGD/sigmoidoscopy. Patient was able to tolerate low residue
diet. Once patient symptoms continue to improve, he was then discharged home with instructions to follow-up with all her physicians outpatient.
Discharge Plan
-
Patient Disposition: Home (Routine Discharge)
Discharge Diagnosis/Procedures: Suspect functional obstruction/dysmotility
Nausea and vomiting
Condition: Fair
Diet: Low Fiber
Activity: As tolerated
Driving Restrictions: As prior to admission
Bathing Restrictions: None
Activity Restrictions/Additional Instructions:
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
Referrals:
Chavez Whitaker MD [Active, Surgical]
Venkat Valdez MD [Family Provider, Internal Medicine] - in less than 1 week
Prescriptions:
Continued
trazodone 100 MG tablet
200 mg PO HS
gabapentin 300 MG capsule
600 mg PO HS
duloxetine [Cymbalta] 60 mg Capsule,Delayed Release(Dr/Ec)
120 mg PO DAILY
cyanocobalamin (vitamin B-12) 1,000 MCG tablet
1,000 mcg PO DAILY
cholecalciferol (vitamin D3) 1,000 UNITS tablet
1,000 units PO DAILY
ondansetron HCl 4 mg Tablet
4 mg PO Q8HPRN PRN (Reason: nausea)
olanzapine 5 mg Tablet
5 mg PO HS
pantoprazole 40 mg Tablet,Delayed Release (Dr/Ec)
40 mg PO BID
buspirone 30 mg Tablet
30 mg PO BID
Belsomra 15 mg Tablet
15 mg PO HS
Nurtec ODT 75 mg Tablet,Disintegrating
75 mg PO Q48H
Discharge Orders:
Discharge Patient (As Directed); Ordered 10/11/24
Ordered By: Isael Alvarado
Discharge Date and Time
Discharge Date/Time: 10/11/24 14:38
Print Language: POLISH
--- NOTE | 2024-10-11 14:30 | CM ---
CM following re: discharge planning.
Reviewed pt's chart, met with pt.
Discharge order noted. Pt is aware, expressed her agreement with discharge and pt stated her is coming to transport her home.
IMM reviewed, placed on chart, pt has a copy.
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
No after care VN services indicated.
D/C plan: home with no after care VN needs. to transport.
[2024-10-11 14:36] VITALS: BP 112/76
== END 2024-10-11 14:38 | disposition home or self-care (01) | DRG 390 ==
LOC: 2 NORTH 02:33
PROVIDERS: Internal Medicine; ADMITTING PHYSICIAN Internal Medicine; ATTENDING PHYSICIAN Internal Medicine; EMERGENCY PHYSICIAN Emergency Medicine; FAMILY PHYSICIAN Internal Medicine; OTHER PHYSICIAN Surgery
PROC: 0D9670Z Drainage of Stomach with Drainage Device, Via Natural or Artificial Opening (ICD-10-PCS; 2024-10-07)
DX: K56.50 Intestinal adhesions [bands], unspecified as to partial versus complete obstruction (principal); M79.7 Fibromyalgia; M34.89 Other systemic sclerosis; I73.00 Raynaud's syndrome without gangrene; M35.00 Sjogren syndrome, unspecified; K21.9 Gastro-esophageal reflux disease without esophagitis; F41.9 Anxiety disorder, unspecified; K52.9 Noninfective gastroenteritis and colitis, unspecified; K44.9 Diaphragmatic hernia without obstruction or gangrene; E03.9 Hypothyroidism, unspecified; G89.4 Chronic pain syndrome; K59.89 Other specified functional intestinal disorders; J42 Unspecified chronic bronchitis; F32.A Depression, unspecified; Z98.84 Bariatric surgery status; Z86.73 Personal history of transient ischemic attack (TIA), and cerebral infarction without residual deficits; Z90.49 Acquired absence of other specified parts of digestive tract; Z87.74 Personal history of (corrected) congenital malformations of heart and circulatory system; Z88.6 Allergy status to analgesic agent; Z88.1 Allergy status to other antibiotic agents; Z88.5 Allergy status to narcotic agent; Z88.0 Allergy status to penicillin; Z88.8 Allergy status to other drugs, medicaments and biological substances
CPT/HCPCS: 74022; 74177; 80048; 80053; 82962; 83690; 83735; 84484; 85025; 85027; 87045; 87046; 87077; 87324; 87427; 87449; 93005; 96361; 96374; 99285; Q9967

== ENCOUNTER 2024-11-15 02:34 | Emergency (ER) | payer MEDICARE, BC, SELFPAY ==
[2024-11-15 02:40] VITALS: BP 108/72
[2024-11-15 03:22] LABS: Hematocrit 46.0 % (37.0-47.0); Hemoglobin 14.9 g/dL (12.0-16.0); Mean Corp Hgb Conc. 32.4 g/dL (33.0-37.0); Mean Corpuscular Volume 96.2 fL (81.0-99.0); Nucleated Red Blood Cells % 0 %; Platelet Count 275 10^3/uL (130-400); Red Cell Dist. Width 15.9 % (11.5-14.5)
[2024-11-15 03:50] LABS: ALT (SGPT) 40 U/L (0-35); AST (SGOT) 28 U/L (14-36); Albumin 4.9 g/dl (3.5-5.0); Alkaline Phosphatase 62 U/L (38-126); Blood Urea Nitrogen 17 mg/dl (7-17); Calcium 9.2 mg/dl (8.4-10.2); Carbon Dioxide 18 mmol/L (22-30); Chloride 112 mmol/L (98-107); Glucose 111 mg/dl (70-99); Lipase 278 U/L (23-300); Potassium 4.4 mmol/L (3.5-5.1); Sodium 140 mmol/L (135-145); Total Protein 7.6 g/dl (6.3-8.2); eGFR > 60.00
== END 2024-11-15 03:49 ==
LOC: EMR 02:34
PROVIDERS: Emergency Medicine
DX: R10.9 Unspecified abdominal pain (principal); R11.2 Nausea with vomiting, unspecified; R19.7 Diarrhea, unspecified
CPT/HCPCS: 80053; 83690; 85025